=== PATIENT | male | born 1965 | race Caucasian/White ===

== ENCOUNTER 2016-11-17 17:30 | Emergency (ER) | payer MEDICAID ==
--- NOTE | 2016-11-17 17:38 | EDPHY ---
H & P Time Seen by Provider: 11/17/16 17:34 HPI/ROS: CHIEF COMPLAINT: Chronic hernia pain HISTORY OF PRESENT ILLNESS: The patient presents to the ED with complaints of chronic hernia pain. The patient was recently diagnosed with bronchitis and has been coughing. This is exacerbated his chronic hernia pain. The patient is scheduled to get surgery for bilateral inguinal hernias 2 weeks time. The patient denies additional acute complaints. He is not on antibiotics. The patient denies any inguinal mass or vomiting. He reports normal bowel movements. He denies additional complaints. REVIEW OF SYSTEMS: A comprehensive 10 point review of systems is otherwise negative aside from elements mentioned in the history of present illness. Source: Patient Exam Limitations: No limitations - Medical/Surgical History Hx Asthma: No Hx Chronic Respiratory Disease: No Hx Diabetes: No Hx Cardiac Disease: No Hx Renal Disease: No Hx Cirrhosis: No Hx Alcoholism: Yes Hx HIV/AIDS: No Hx Splenectomy or Spleen Trauma: No Other PMH: TB, bilateral hernias, reflux - Social History Smoking Status: Current every day smoker - Physical Exam Exam: General Appearance: Alert, disheveled, no acute distress, alcohol on breath Eyes: Pupils equal and round no pallor or injection ENT, Mouth: Mucous membranes moist Respiratory: There are no retractions, lungs are clear to auscultation Cardiovascular: Regular rate and rhythm Gastrointestinal: Tenderness to palpation noted in the left inguinal area, no irreducible hernia Neurological: A&O, normal motor function, normal sensory exam, normal cranial nerves Skin: Warm and dry, no rashes Musculoskeletal: Neck is supple nontender Extremities: symmetrical, full range of motion Constitutional: Initial Vital Signs Temperature (C) 36.6 C 11/17/16 17:30 Heart Rate 90 11/17/16 17:30 Respiratory Rate 20 11/17/16 17:30 Blood Pressure 108/69 11/17/16 17:30 O2 Sat (%) 94 11/17/16 17:30 O2 Delivery Mode Room Air Allergies/Adverse Reactions: Penicillins Allergy (Verified 11/17/16 17:45) Home Medications: Medication Instructions Recorded traMADol 11/17/16 Medical Decision Making ED Course/Re-evaluation: The patient presents to the ED with with a inguinal hernia pain. There is no evidence of an incarcerated or strangulated hernia. The patient is currently intoxicated it will not be given narcotic pain medications. The patient was offered Tylenol. The patient is scheduled to see a surgeon for repair of his hernias in 2 weeks time. The patient has been instructed to return to the ED for severe pain, vomiting, and irreducible hernia or other concerns. Departure - Departure Disposition: Home, Routine, Self-Care Clinical Impression: Inguinal hernia Condition: Good Instructions: Inguinal Hernia (ED) Additional Instructions: 1. Please follow up with the surgeon at as scheduled. 2. Tylenol as needed for pain. 3. Please return to the ED for a protrusion in your hernia that will not reduce , severe pain, vomiting or other concerns. Referrals: [facility] [Outside] - As per Instructions
[2016-11-17 18:02] VITALS: BP 110/64; PULSE 82; RESP 18; TEMP 98.2; O2SAT 95
[2016-11-17] MEDS ORDERED: ACETAMINOPHEN 325 MG TAB ONE (18:08)
[2016-11-17] MEDS ORDERED: ACETAMINOPHEN 325 MG TAB PO ONE (18:29)
== END 2016-11-17 18:30 | disposition home or self-care (01) ==
LOC: EDUNIT#
DX: K40.90 Unilateral inguinal hernia, without obstruction or gangrene, not specified as recurrent (principal); F17.200 Nicotine dependence, unspecified, uncomplicated

== ENCOUNTER 2017-03-21 20:12 | Emergency (ER) | payer MEDICAID ==
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
[2017-03-21] MEDS ORDERED: LIDOCAINE 5% 1 EA PATCH TD SCH (20:30)
[2017-03-21 20:48] VITALS: BP 128/76; PULSE 81; RESP 16; TEMP 97.7; O2SAT 95
[2017-03-21] MEDS ORDERED: PATCH REMOVAL 1 EA PATCH TD SCH (21:00)
== END 2017-03-21 20:50 | disposition home or self-care (01) ==
LOC: EDUNIT#
DX: M54.41 Lumbago with sciatica, right side (principal); F17.200 Nicotine dependence, unspecified, uncomplicated

== ENCOUNTER 2017-07-04 17:07 | Emergency (ER) | payer MEDICAID ==
[2017-07-04 17:19] VITALS: RESP 16; TEMP 97.9
[2017-07-04] MEDS ORDERED: TDAP ADULT 0.5 ML INJ (BOOSTRIX) IM ONE (17:55)
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
[2017-07-04 18:18] VITALS: BP 110/78; PULSE 72; O2SAT 96
== END 2017-07-04 18:18 | disposition home or self-care (01) ==
LOC: EDUNIT#
DX: S00.83XA Contusion of other part of head, initial encounter (principal); S00.81XA Abrasion of other part of head, initial encounter; F10.129 Alcohol abuse with intoxication, unspecified; F17.200 Nicotine dependence, unspecified, uncomplicated; Z23 Encounter for immunization; Y04.0XXA Assault by unarmed brawl or fight, initial encounter

== ENCOUNTER 2017-09-12 22:30 | Emergency (ER) | payer MEDICAID ==
[2017-09-12 22:35] VITALS: BP 117/64; PULSE 64; RESP 106; TEMP 97.9; O2SAT 93
[2017-09-12] MEDS ORDERED: IBUPROFEN 600 MG TAB PO ONE (22:46)
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
== END 2017-09-12 22:54 | disposition home or self-care (01) ==
LOC: EDUNIT#
DX: M54.5 Low back pain (principal); G89.29 Other chronic pain; F17.200 Nicotine dependence, unspecified, uncomplicated

== ENCOUNTER 2017-12-03 15:38 | Inpatient (IN) | payer MEDICAID ==
[~2017-12-03 15:38] MED LIST: PNEUMOCOCCAL 0.5ML VACCINE VIAL IM ONE
[2017-12-03] MEDS ORDERED: IPRATROPIUM/ALBUTEROL 3 ML DEYVIAL IH ONE (15:43)
[2017-12-03] MEDS ORDERED: methylPREDNISolone SOD SUCC 125 MG/2 ML VIAL IVP ONE (15:43)
[2017-12-03] MEDS ORDERED: NS 1,000 ML IV ONE (15:44)
--- NOTE | 2017-12-03 15:44 | EDPHY ---
H & P HPI/ROS: CHIEF COMPLAINT: Shortness of breath, lightheaded HISTORY OF PRESENT ILLNESS: The patient is a 52-year-old homeless man with a remote history of TB who called EMS because he felt short of breath and every time he stood up felt lightheaded. He states that 2 months ago he was diagnosed at the [facility] with COPD. He has been using inhalers to 3 times per day. Or last week or 2 he has had a worsening cough. He was seen at the clinic yesterday and prescribed Tessalon Perles. He states that he has had subjective fevers. No chest pain. No abdominal pain. When paramedics arrived they found that he was wheezing and saturating 89% on room air. They gave him a DuoNeb and his sats improved to 97% on room air. He denies any cardiac history. REVIEW OF SYSTEMS: Constitutional: denies: chills, fever, recent illness, recent injury EENTM: denies: blurred vision, double vision, nose congestion Respiratory: See HPI Cardiac: denies: chest pain, irregular heart rate, lightheadedness, palpitations Gastrointestinal/Abdominal: denies: abdominal pain, diarrhea, nausea, vomiting, blood streaked stools Genitourinary: denies: dysuria, frequency, hematuria, pain Musculoskeletal: denies: joint pain, muscle pain Skin: denies: lesions, rash, jaundice, bruising Neurological: denies: headache, numbness, paresthesia, tingling, dizziness, weakness Hematologic/Lymphatic: denies: blood clots, easy bleeding, easy bruising Immunologic/allergic: denies: HIV/AIDS, transplant EXAM: GENERAL: Well-appearing, well-nourished and in no acute distress. HEAD: Atraumatic, normocephalic. EYES: Pupils equal round and reactive to light, extraocular movements intact, sclera anicteric, conjunctiva are normal. ENT: TMs normal, nares patent, oropharynx clear without exudates. Moist mucous membranes. NECK: Normal range of motion, supple without lymphadenopathy or JVD. LUNGS: Bilateral rhonchi HEART: Regular rate and rhythm without murmurs, rubs or gallops. ABDOMEN: Soft, nontender, normoactive bowel sounds. No guarding, no rebound. No masses appreciated. BACK: No CVA tenderness, no spinal tenderness, step-offs or deformities EXTREMITIES: Normal range of motion, no pitting or edema. No clubbing or cyanosis. NEUROLOGICAL: Cranial nerves II through XII grossly intact. Normal speech, normal gait. 5/5 strength, normal movement in all extremities, normal sensation PSYCH: Normal mood, normal affect. SKIN: Warm, dry, normal turgor, no visible rashes or lesions. Source: Patient, EMS, Old records Exam Limitations: No limitations - Medical/Surgical History Hx Asthma: No Hx Chronic Respiratory Disease: No Hx Diabetes: No Hx Cardiac Disease: No Hx Renal Disease: No Hx Cirrhosis: No Hx Alcoholism: Yes Hx HIV/AIDS: No Hx Splenectomy or Spleen Trauma: No Other PMH: TB, bilateral hernias, reflux - Family History Significant Family History: No pertinent family hx - Social History Smoking Status: Current every day smoker Alcohol Use: Heavy Drug Use: Marijuana Constitutional: Initial Vital Signs Temperature (C) 37 C 12/03/17 15:40 Heart Rate 96 12/03/17 15:40 Respiratory Rate 20 12/03/17 15:40 Blood Pressure 144/90 H 12/03/17 15:40 O2 Sat (%) 93 12/03/17 15:40 O2 Delivery Mode Nasal Cannula O2 (L/minute) 2 Allergies/Adverse Reactions: Penicillins Allergy (Verified 09/12/17 22:33) Home Medications: Medication Instructions Recorded Albuterol [Proventil Inhaler HFA 1 - 2 puffs IH Q4H PRN MDD SOB 12/03/17 (*)] Benzonatate [Tessalon Pearles (RX)] 100 mg PO TID 12/03/17 Ipratropium/Albuterol [Combivent 1 puffs IH TID 12/03/17 Respimat Inhal [place](*)] Meloxicam [Meloxicam] 7.5 mg PO BID PRN 12/03/17 traMADol [Ultram 50 mg (*)] 50 - 100 mg PO TID PRN 12/03/17 Medical Decision Making - Diagnostics EKG Interpretation: An EKG obtained and was read and documented in trace view. Please see trace view for full reading and report. Unchanged from previous, sinus rhythm Imaging Results: Imaging Impressions Chest X-Ray 12/03/17 15:43 Impression: Stable chest with no acute findings. Imaging: Discussed imaging studies w/ call center agent Radiologist ED Course/Re-evaluation: After 2 nebs the patient's sats still remain in the high 80s. He is homeless. He will require admission for further treatment. I will start him on antibiotics in addition to treatment for the COPD. 5:15 p.m. I discussed the case with Dr. Елена Alfaro who will admit to the medical service. Differential Diagnosis: Partial list of the Differential diagnosis considered include but were not limited to; COPD exacerbation, pneumonia, bronchitis and although unlikely based on the history and physical exam, I also considered acute coronary disease , PE, pneumothorax, aneurysm. - Data Points Laboratory Results: Laboratory Results 12/03/17 15:45 12/03/17 15:45 12/03/17 12/03/17 12/03/17 15:45 15:45 15:45 WBC RBC Hgb Hct MCV MCH MCHC RDW Plt Count MPV Neut % (Auto) Lymph % (Auto) [place] % (Auto) Eos % (Auto) Baso % (Auto) Nucleat RBC Rel Count Absolute Neuts (auto) Absolute Lymphs (auto) Absolute Monos (auto) Absolute Eos (auto) Absolute Basos (auto) Absolute Nucleated RBC Immature Gran % Immature Gran # PT 12.9 SEC SEC (12.0-15.0) INR 0.95 (0.83-1.16) APTT 32.0 SEC SEC (23.0-38.0) VBG Lactic Acid 1.5 mmol/L mmol/L (0.7-2.1) Sodium 135 mEq/L mEq/L (135-145) Potassium 4.4 mEq/L mEq/L (3.5-5.2) Chloride 101 mEq/L mEq/L (97-110) Carbon Dioxide 21 mEq/l L mEq/l (22-31) Anion Gap 13 mEq/L mEq/L (8-16) BUN 12 mg/dL mg/dL (7-23) Creatinine 0.7 mg/dL mg/dL (0.7-1.3) Estimated GFR > 60 Glucose 105 mg/dL H mg/dL (70-100) Calcium 9.2 mg/dL mg/dL (8.5-10.4) Total Bilirubin 0.3 mg/dL mg/dL (0.1-1.4) Troponin I < 0.012 ng/mL ng/mL (0.000-0.034) 12/03/17 15:45 WBC 10.98 10^3/uL H 10^3/uL (3.80-9.50) RBC 4.79 10^6/uL 10^6/uL (4.40-6.38) Hgb 15.0 g/dL g/dL (13.7-17.5) Hct 45.3 % % (40.0-51.0) MCV 94.6 fL fL (81.5-99.8) MCH 31.3 pg pg (27.9-34.1) MCHC 33.1 g/dL g/dL (32.4-36.7) RDW 12.4 % % (11.5-15.2) Plt Count 274 10^3/uL 10^3/uL (150-400) MPV 10.5 fL fL (8.7-11.7) Neut % (Auto) 81.9 % H % (39.3-74.2) Lymph % (Auto) 11.2 % L % (15.0-45.0) [place] % (Auto) 6.1 % % (4.5-13.0) Eos % (Auto) 0.1 % L % (0.6-7.6) Baso % (Auto) 0.3 % % (0.3-1.7) Nucleat RBC Rel Count 0.0 % % (0.0-0.2) Absolute Neuts (auto) 9.00 10^3/uL H 10^3/uL (1.70-6.50) Absolute Lymphs (auto) 1.23 10^3/uL 10^3/uL (1.00-3.00) Absolute Monos (auto) 0.67 10^3/uL 10^3/uL (0.30-0.80) Absolute Eos (auto) 0.01 10^3/uL L 10^3/uL (0.03-0.40) Absolute Basos (auto) 0.03 10^3/uL 10^3/uL (0.02-0.10) Absolute Nucleated RBC 0.00 10^3/uL 10^3/uL (0-0.01) Immature Gran % 0.4 % % (0.0-1.1) Immature Gran # 0.04 10^3/uL 10^3/uL (0.00-0.10) PT INR APTT VBG Lactic Acid Sodium Potassium Chloride Carbon Dioxide Anion Gap BUN Creatinine Estimated GFR Glucose Calcium Total Bilirubin Troponin I Microbiology Results: MICROBIOLOGY 12/03/17 16:15 Nasal, Sinus - Anaerobic Tube/Swab Respiratory Panel (PCR) - Final Human Metapneumovirus Medications Given: Discontinued Medications Albuterol (Proventil Neb) 3 ml IH EDNOW ONE Stop: 12/03/17 16:54 Last Admin: 12/03/17 16:55 Dose: 3 ml Albuterol/Ipratropium (Duoneb) 3 ml IH EDNOW ONE Stop: 12/03/17 15:44 Last Admin: 12/03/17 16:05 Dose: 3 ml Azithromycin (Zithromax) 500 mg PO EDNOW ONE PRN Reason: Protocol Stop: 12/03/17 17:08 Last Admin: 12/03/17 17:19 Dose: 500 mg Sodium Chloride (Ns) 1,000 mls @ 0 mls/hr IV ONCE ONE; Wide Open PRN Reason: Protocol Stop: 12/03/17 15:45 Last Admin: 12/03/17 16:05 Dose: 1,000 mls Methylprednisolone Sodium Succinate (Solu-Medrol) 125 mg IVP EDNOW ONE Stop: 12/03/17 15:44 Last Admin: 12/03/17 16:05 Dose: 125 mg Departure - Departure Disposition: [facility] Inpatient Acute Clinical Impression: Chronic obstructive pulmonary disease with acute exacerbation Condition: Fair
[2017-12-03 15:57] LABS: PLATELET COUNT 274 10^3/uL (150-400)
[2017-12-03 16:06] LABS: INR 0.95 (0.83-1.16); PROTIME(PATIENT) 12.9 SEC (12.0-15.0)
[2017-12-03] MEDS ORDERED: ALBUTEROL 3 ML DEYVIAL IH ONE (16:53)
[2017-12-03] MEDS ORDERED: AZITHROMYCIN 250 MG TAB PO ONE (17:07)
[2017-12-03] MEDS ORDERED: NON-FORMULARY NEW DRUG (Meloxicam [Meloxicam] 7.5 MG) PO PRN (21:40)
[2017-12-03] MEDS ORDERED: IBUPROFEN 600 MG TAB PO PRN (21:45)
[2017-12-03] MEDS ORDERED: ONDANSETRON 4 MG/2 ML VIAL IVP PRN (21:45)
[2017-12-03] MEDS ORDERED: guaiFENesin 600 MG TAB.ER PO ONE ×2 (22:13→22:14)
[2017-12-03] MEDS: guaiFENesin 600 MG TAB.ER PO SCH (22:17)
[2017-12-03] MEDS: BENZONATATE 100 MG CAP PO SCH (22:17)
[2017-12-03] MEDS: traMADol 50 MG TAB PO PRN (22:17)
--- NOTE | 2017-12-03 22:17 | GHP ---
[f rep st] HISTORY AND PHYSICAL DATE OF ADMISSION: 12/03/2017 CHIEF COMPLAINT: Shortness of breath. HISTORY: The patient is a 52-year-old male with COPD and ongoing heavy tobacco abuse, who presents w ith shortness of breath and cough. He has was hospitalized in [place] for COPD exacerbation. He "can not remember when," but he has never gotten better since that hospitalization. It has gotten worse i n the last 1-1/2 weeks. He complains of [id number] phlegm. He has fever off and on. Shortn ess of breath got so bad today he called 911. PAST MEDICAL HISTORY: 1. COPD. 2. Remote tuberculosis, which he was exposed to while staying in a homeless assisted in [place] in . 3. Chronic low back pain. PAST SURGICAL HISTORY: Hernia. MEDICATIONS: Please see computer record for full detailed list. ALLERGIES: Penicillin. SOCIAL HISTORY: He smokes 2 packs per day. He quit alcohol 2 months ago. He is homeless. REVIEW OF SYSTEMS: Complete review of systems obtained. Review of systems negative regarding consti tutional, HEENT, GI, pulmonary, cardiovascular, , hematology, skin, muscular, endocrine, psych, exc ept for positives as in HPI. FAMILY HISTORY: Reviewed, noncontributory to presenting complaint. PHYSICAL EXAMINATION: GENERAL: Well-developed, well-nourished male, in no distress. VITAL SIGNS: Temp is 37.2, pulse 105, blood pressure 130/84, saturating 88% on room air. EYES: Normal conjunctiv ae. Pupils react to light. ENT: Normal ears and nose. Hearing intact. Normal teeth. Oropharynx moist. NECK: Trachea midline. No thyromegaly. CHEST: Normal respiratory effort. LUNGS: Scatter ed wheezes and rhonchi. CARDIOVASCULAR: Regular rhythm. No murmur. No lower extremity edema. ABD OMEN: Soft, nontender. No hepatosplenomegaly. SKIN: Warm, dry, intact. No rash. MUSCULOSKELETAL : No cyanosis or clubbing. Strength 5/5, upper and lower extremities. NEUROLOGIC: Cranial nerves intact. Normal sensation to light touch. PSYCH: Alert and oriented x3. Normal affect. Normal sarah gment. Normal memory. LABORATORY DATA: White count 10.9, hematocrit 45.3, platelets 274. Sodium 135, potassium 4.4, chlor deny 101, bicarb 21, BUN 12, creatinine 0.7, glucose 105, troponins negative. Lactate is 1.5, INR 0.9 5. Chest x-ray is negative. Respiratory PCR is positive for metapneumovirus. This case was discussed with Dr. Monty Andrew, emergency room physician, regarding emergency room co urse. ASSESSMENT/PLAN: 1. Chronic obstructive pulmonary disease exacerbation. Will start him on prednisone and scheduled nebulizers. 2. Viral upper respiratory tract infection. He is positive for human metapneumovirus. Will hold of f on any further antibiotics. 3. Remote tuberculosis, status post full treatment. I doubt this represents recurrence. 4. Tobacco dependence. Will administer a nicotine patch. CODE STATUS: Full. ADMISSION STATUS: Will admit to observation. Reevaluate tomorrow regarding ongoing hospitalization. DVT PROPHYLAXIS: He is moderate risk. Will place on subcu Lovenox. /[id number]/MODL
[2017-12-03] MEDS: IPRATROPIUM/ALBUTEROL 3 ML DEYVIAL IH SCH (22:35)
[2017-12-04] MEDS ORDERED: PNEUMOCOCCAL 0.5ML VACCINE VIAL ONE (00:30)
[2017-12-04] MEDS: ACETAMINOPHEN 325 MG TAB PO PRN ×2 (00:39→15:37)
[2017-12-04] MEDS: IPRATROPIUM/ALBUTEROL 3 ML DEYVIAL IH SCH ×3 (05:44→16:08)
[2017-12-04] MEDS: predniSONE 20 MG TAB PO SCH (08:23)
[2017-12-04] MEDS: BENZONATATE 100 MG CAP PO SCH ×3 (08:23→21:15)
[2017-12-04] MEDS: traMADol 50 MG TAB PO PRN ×2 (08:23→21:15)
[2017-12-04] MEDS: guaiFENesin 600 MG TAB.ER PO SCH ×2 (08:24→21:15)
[2017-12-04] MEDS: NICOTINE 21 MG/24 HR PATCH TD SCH (08:24)
[2017-12-04] MEDS: ENOXAPARIN 40 MG/0.4 ML SYR SC SCH (08:26)
--- NOTE | 2017-12-04 10:00 | HOSPPROG ---
Hospitalist Progress Note Assessment/Plan: Patient is a 52-year-old male with COPD and ongoing tobacco use. He presented the emergency with shortness of breath. He was recently hospitalized in [place] for COPD exacerbation. Today is my 1st encounter with the patient. Chart reviewed. * viral upper respiratory tract infection -patient is positive for human metapneumovirus -feeling better with steroids -droplet precautions *acute hypoxemic respiratory failure -multifactorial, COPD w the above -on 3 liters of oxygen *COPD exacerbation -cont duonebs and steroids *underweight w a BMI of 20 *Nicotine dependence -nicotine patch, cessation recommended *Homelessness -CM to arrange for bed at group home when dc *Plan: patient is still quite hypoxic, requiring oxygen and needs another night to treat with nebulizers. Subjective: Prasad is feeling better today overall. Objective: Vital Signs Temp Pulse Resp BP Pulse Ox 36.7 C 79 16 123/63 H 92 12/04/17 08:00 12/04/17 08:00 12/04/17 08:00 12/04/17 08:00 12/04/17 08:00 12/03/17 12/04/17 12/05/17 05:59 05:59 05:59 Intake Total 1000 Balance 1000 PT 12.9 SEC (12.0-15.0) 12/03/17 15:45 INR 0.95 (0.83-1.16) 12/03/17 15:45 - Physical Exam Constitutional: unkempt, other (thin) Eyes: PERRL Ears, Nose, Mouth, Throat: hearing normal Cardiovascular: regular rate and rhythym Respiratory: no respiratory distress, reduced air movement (bibasilar, poor breath sounds throughout, very diminished) Skin: warm Musculoskeletal: full muscle strength Neurologic: AAOx3 Psychiatric: interacting appropriately ICD10 Worksheet Patient Problems: Problems Problem Status Onset Chronic obstructive pulmonary disease with acute exacerbation Acute Back pain Acute
--- NOTE | 2017-12-04 12:17 | ASMTCMCOM ---
CM Note CM Note Notes: Spoke with patient, he states he is in the transitional program at the [facility] and will return there when medically stable. CM to help with bus pass. DC Plan: [facility] Date Signed: 12/04/2017 12:16 PM Electronically Signed By:Venus Mccormick RN
--- NOTE | 2017-12-04 12:25 | CPEKG ---
Heart Rate: 82 RR Interval: 732 P-R Interval: 192 QRSD Interval: 94 QT Interval: 376 QTC Interval: 439 P [place]: 77 QRS [place]: 59 T Wave [place]: 80 EKG Severity - ABNORMAL ECG - EKG Impression: SINUS RHYTHM EKG Impression: NONSPECIFIC T ABNORMALITIES, ANT-LAT LEADS Electronically Signed By: Monty Andrew 04-Dec-2017 20:55:15
--- NOTE | 2017-12-04 15:33 | PDMN ---
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
[2017-12-05] MEDS: IPRATROPIUM/ALBUTEROL 3 ML DEYVIAL IH SCH ×3 (00:09→11:53)
[2017-12-05] MEDS: BENZONATATE 100 MG CAP PO SCH (08:05)
[2017-12-05] MEDS: predniSONE 20 MG TAB PO SCH (08:05)
[2017-12-05] MEDS: guaiFENesin 600 MG TAB.ER PO SCH (08:06)
[2017-12-05] MEDS: NICOTINE 21 MG/24 HR PATCH TD SCH (08:06)
[2017-12-05] MEDS: ENOXAPARIN 40 MG/0.4 ML SYR SC SCH (08:06)
[2017-12-05] MEDS: traMADol 50 MG TAB PO PRN (08:07)
--- NOTE | 2017-12-05 10:23 | HOSPPROG ---
Hospitalist Progress Note Assessment/Plan: Patient is a 52-year-old male with COPD and ongoing tobacco use. He presented the emergency with shortness of breath. He was recently hospitalized in [place] for COPD exacerbation. * viral upper respiratory tract infection -patient is positive for human metapneumovirus -feeling better with steroids -droplet precautions *acute hypoxemic respiratory failure -multifactorial, COPD w the above -on room air this morning *COPD exacerbation -cont duonebs and steroids *underweight w a BMI of 20 *Nicotine dependence -nicotine patch, cessation recommended *Homelessness -CM to arrange for bed / PCP has requested 2 nights at the [facility] *Plan: dc Subjective: Prasad says he is feeling better but concerned about being in the cold. Objective: Vital Signs Temp Pulse Resp BP Pulse Ox 36.6 C 93 18 125/87 H 88 L 12/05/17 07:32 12/05/17 07:32 12/05/17 07:32 12/05/17 07:32 12/05/17 07:32 Microbiology 12/04/17 10:30 - Final Sputum, Expectorated 12/04/17 12/05/17 12/06/17 05:59 05:59 05:59 Intake Total 1150 Balance 1150 PT 12.9 SEC (12.0-15.0) 12/03/17 15:45 INR 0.95 (0.83-1.16) 12/03/17 15:45 - Physical Exam Constitutional: no apparent distress, other (thin) Eyes: PERRL Ears, Nose, Mouth, Throat: hearing normal Cardiovascular: regular rate and rhythym Respiratory: no respiratory distress, reduced air movement, other (loose cough) Skin: warm Musculoskeletal: full muscle strength Neurologic: AAOx3 Psychiatric: interacting appropriately, not anxious ICD10 Worksheet Patient Problems: Problems Problem Status Onset Chronic obstructive pulmonary disease with acute exacerbation Acute Back pain Acute
--- NOTE | 2017-12-05 10:49 | GDS ---
[f rep st] DISCHARGE SUMMARY DISCHARGE DIAGNOSIS: 1. Upper respiratory viral infection, positive for human metapneumovirus. 2. Acute hypoxemic respiratory failure. 3. Chronic obstructive pulmonary disease exacerbation. 4. Underweight with a body mass index of 20. 5. Nicotine dependence. 6. Homelessness. HISTORY: Briefly, the patient is a 52-year-old male with COPD and ongoing tobacco use. He presented the emergency room with shortness of breath. He was recently hospitalized in [place] for COPD. HOSPITAL COURSE: 1. Viral upper respiratory tract infection. He is positive for the human metapneumovirus. He is st able. 2. Acute hypoxemic respiratory failure. This is due to the viral infection as well as COPD. He is on room air this morning and oxygen levels are stable. 3. Chronic obstructive pulmonary disease exacerbation. He is very motivated to quit smoking. He wo uld like his stay on the nicotine patch. 4. Underweight. He has a BMI of 20. 5. Nicotine dependence. Motivated to quit smoking. 6. Homelessness. He will be staying at the [facility] for the next 2 days due to the cold weather. DISCHARGE CONDITION: Stable. Blood pressure is 125/87, heart rate 93, respiratory rate is 18, O2 sa turations on room air are 91%, temperature is 36.6 Celsius. MEDICATIONS AT DISCHARGE: Please see the EMR. DISCHARGE INSTRUCTIONS: 1. Recommend he quit smoking. 2. Follow up with his PCP, has an appointment tomorrow. 3. Stay on the prednisone for 4 more days. 4. Stay inside while the weather is so cold. /[id number]/MODL
[2017-12-05 11:35] VITALS: BP 131/80; TEMP 99.9
[2017-12-05 12:07] VITALS: PULSE 105; RESP 16; O2SAT 92
[2017-12-05] MEDS: ACETAMINOPHEN 325 MG TAB PO PRN (12:15)
--- NOTE | 2017-12-05 16:21 | ASMTLACE ---
LACE Length of stay for Answers: 2 days current admission Acuity / Level of Answers: Yes Care: Did the patient have an inpatient admission? Comorbidities - select Answers: Chronic pulmonary disease all that apply Social determinants Answers: Homelessness (street, fpc) Lack of community resources and/or lack of social support (no pcp, lives alone, transportation, sudhaakr d) Score: 14 Date Signed: 12/05/2017 04:20 PM Electronically Signed By:Jasmin Zamora LCSW
== END 2017-12-05 15:46 | disposition home or self-care (01) | DRG 152 ==
LOC: EDUNIT# → F3E 18:21 → OBSVTOIN 12-04 10:29
PROVIDERS: ADMIT Internal Medicine; ATTEND Internal Medicine
DX: J06.9 Acute upper respiratory infection, unspecified (principal); J96.01 Acute respiratory failure with hypoxia; J44.1 Chronic obstructive pulmonary disease with (acute) exacerbation; B97.81 Human metapneumovirus as the cause of diseases classified elsewhere; R63.6 Underweight; Z68.20 Body mass index [BMI] 20.0-20.9, adult; F17.200 Nicotine dependence, unspecified, uncomplicated; Z59.0 Homelessness; Z23 Encounter for immunization; Z86.11 Personal history of tuberculosis
CPT/HCPCS: 96374; 97161-GP; 97165-GO; G0009; G0378; J1650; J2930; J7512; J7613

== ENCOUNTER 2017-12-10 16:06 | Inpatient (IN) | payer MEDICAID ==
--- NOTE | 2017-12-10 16:09 | EDPHY ---
H & P Time Seen by Provider: 12/10/17 16:08 HPI/ROS: HPI: This is a 52-year-old male who presents with Chief Complaint: Cough and congestion Location: Chest Quality: Congestion Duration: 1-2 days Signs and Symptoms: No fever, no shortness of breath at rest, + shortness of breath on exertion, + a productive cough, no chest pain, no palpitations, no lower extremity edema, no wheezing, no orthopnea, no paroxysmal nocturnal dyspnea, no injury/trauma, no hemoptysis Timing: Acute on chronic Severity: Moderate Context: Patient has a history of left pneumothorax, COPD not on O2 supplemental, tuberculosis, homelessness, presents with complaints of increased cough and congestion over his baseline the last 1-2 days. Patient was recently hospitalized 12/03-12/04/2017 for acute respiratory failure secondary to COPD and viral pneumonia. Patient reports that he took his last prednisone pill 2 days ago. ED reports since that time he feels that his left lung is more congested that is right lung. He is using Combivent inhaler without any improvement. Denies tobacco use. Patient denies any nasal congestion/ rhinorrhea/lower extremity edema/chest pain. Modifying Factors: See above Comment: ROS: see HPI Constitutional: No fever, no chills, no weight loss Eyes: No blurred vision Respiratory: No shortness of breath, no cough Cardiovascular: No chest pain, no palpitations, no lower extremity edema Gastrointestinal: No nausea, no vomiting, no diarrhea Genitourinary: No dysuria Extremities: No myalgias Neurologic: No weakness, no numbness Skin: No rashes Hematologic: No bruising, no bleeding MEDICAL/SURGICAL/SOCIAL HISTORY: Medical/surgical history: TB, bilateral hernias, reflux Social history: Homeless CONSTITUTIONAL: Chronically ill-appearing, nontoxic appearing, elderly male, awake and alert, no obvious distress HEENT: Atraumatic and normocephalic, PERRL, EOMI. Tympanic membranes clear. Oropharynx clear, no exudate and moist pink mucosa. Airway patent. No lymphadenopathy. No meningismus. Cardiovascular: Normal S1/S2, regular rate, regular rhythm, without murmur rub or gallop. PULMONARY/CHEST: Symmetrical and nontender. Coarseness bilaterally. Good air movement. No accessory muscle usage. ABDOMEN: Soft, nondistended, nontender, no rebound, no guarding, no peritoneal signs, no masses or organomegaly. No CVAT. EXTREMITIES: 2/2 pulses, strength 5/5, no deformities, no clubbing, no cyanosis or edema. NEUROLOGICAL: no focal neuro deficits. GCS 15. SKIN: Warm and dry, no erythema. no rash. Good capillary refill. Source: Patient Exam Limitations: No limitations - Medical/Surgical History Hx Asthma: No Hx Chronic Respiratory Disease: No Hx Diabetes: No Hx Cardiac Disease: No Hx Renal Disease: No Hx Cirrhosis: No Hx Alcoholism: Yes Hx HIV/AIDS: No Hx Splenectomy or Spleen Trauma: No Other PMH: TB, bilateral hernias, reflux - Social History Smoking Status: Current every day smoker Constitutional: Initial Vital Signs Temperature (C) 37.2 C 12/10/17 16:13 Heart Rate 93 12/10/17 16:13 Respiratory Rate 20 12/10/17 16:13 Blood Pressure 130/67 H 12/10/17 16:13 O2 Sat (%) 90 L 12/10/17 16:13 O2 Delivery Mode Nasal Cannula O2 (L/minute) 4 Allergies/Adverse Reactions: Penicillins Allergy (Verified 12/10/17 16:11) Home Medications: Medication Instructions Recorded Albuterol [Proventil Inhaler HFA 1 - 2 puffs IH Q4H PRN MDD SOB 12/03/17 (*)] Benzonatate [Tessalon Pearles] 100 mg PO TID 12/03/17 Ipratropium/Albuterol [Combivent 1 puffs IH TID 12/03/17 Respimat Inhal Latty(*)] Meloxicam 7.5 mg PO BID PRN 12/03/17 traMADol [Ultram 50 mg (*)] 50 - 100 mg PO TID PRN 12/03/17 guaiFENesin [Mucinex 600 MG (*)] 1,200 mg PO BID tab.er 12/05/17 predniSONE 40 mg PO DAILY #8 tablet 12/05/17 Medical Decision Making - Diagnostics Imaging Results: Imaging Impressions Chest X-Ray 12/10/17 16:19 Impression: No evidence for acute cardiopulmonary abnormality. Stable chronic findings as above. ED Course/Re-evaluation: Labs, EKG, chest x-ray, IV medications comment nebulizer therapy ordered O2 sats 90% on room air upon arrival; unsure of baseline. No signs of respiratory distress. Given IV Solu-Medrol 125 and DuoNeb Chest x-ray my read shows stability. No acute effusion, opacity, pneumothorax. Labs reviewed: 16 K white count noted. Likely reactive due to steroid induced. On 12/03/2017 chart review shows WBC 10.9K O2 sats 82% on room air and comes up to 90% on 2 liters nasal cannula Reviewed records from prior hospitalization and no pulmonary embolism evaluation performed. CTA chest ordered 1900: Called by radiologist who advised no pulmonary embolism but there is patchy pneumonia in the right lower lobe and right upper lobe. Blood cultures and IV Cefepime given (concern for hospital-acquired due to recent admission) ED decision to consult for admission as pneumonia and hypoxia. Spoke with hospitalist, Dr. Dotson, who kindly accepts care of the patient. This patient was seen under the supervision of my primary supervising physician. I evaluated care for this patient independently. Discussed this patient with Dr. Leal who did not see the patient. Differential Diagnosis: Shortness of breath including but not limited to pulmonary infectious process, COPD, asthma, pulmonary embolus and congestive heart failure. - Data Points Laboratory Results: Laboratory Results 12/10/17 17:00 12/10/17 17:00 12/10/17 12/10/17 17:00 17:00 WBC 16.99 10^3/uL H 10^3/uL (3.80-9.50) RBC 4.68 10^6/uL 10^6/uL (4.40-6.38) Hgb 14.5 g/dL g/dL (13.7-17.5) Hct 42.9 % % (40.0-51.0) MCV 91.7 fL fL (81.5-99.8) MCH 31.0 pg pg (27.9-34.1) MCHC 33.8 g/dL g/dL (32.4-36.7) RDW 12.4 % % (11.5-15.2) Plt Count 360 10^3/uL 10^3/uL (150-400) MPV 9.8 fL fL (8.7-11.7) Neut % (Auto) 75.1 % H % (39.3-74.2) Lymph % (Auto) 15.8 % % (15.0-45.0) Laporte % (Auto) 7.3 % % (4.5-13.0) Eos % (Auto) 0.5 % L % (0.6-7.6) Baso % (Auto) 0.2 % L % (0.3-1.7) Nucleat RBC Rel Count 0.0 % % (0.0-0.2) Absolute Neuts (auto) 12.74 10^3/uL H 10^3/uL (1.70-6.50) Absolute Lymphs (auto) 2.69 10^3/uL 10^3/uL (1.00-3.00) Absolute Monos (auto) 1.24 10^3/uL H 10^3/uL (0.30-0.80) Absolute Eos (auto) 0.09 10^3/uL 10^3/uL (0.03-0.40) Absolute Basos (auto) 0.04 10^3/uL 10^3/uL (0.02-0.10) Absolute Nucleated RBC 0.00 10^3/uL 10^3/uL (0-0.01) Immature Gran % 1.1 % % (0.0-1.1) Immature Gran # 0.19 10^3/uL H 10^3/uL (0.00-0.10) Sodium 136 mEq/L mEq/L (135-145) Potassium 3.8 mEq/L mEq/L (3.5-5.2) Chloride 103 mEq/L mEq/L (97-110) Carbon Dioxide 21 mEq/l L mEq/l (22-31) Anion Gap 12 mEq/L mEq/L (8-16) BUN 19 mg/dL mg/dL (7-23) Creatinine 0.6 mg/dL L mg/dL (0.7-1.3) Estimated GFR > 60 Glucose 131 mg/dL H mg/dL (70-100) Calcium 9.0 mg/dL mg/dL (8.5-10.4) Troponin I < 0.012 ng/mL ng/mL (0.000-0.034) NT-Pro-B Natriuret Pep 128 pg/mL H pg/mL (0-125) Medications Given: Discontinued Medications Albuterol/Ipratropium (Duoneb) 3 ml IH EDNOW ONE Stop: 12/10/17 16:19 Last Admin: 12/10/17 17:09 Dose: 3 ml Methylprednisolone Sodium Succinate (Solu-Medrol) 125 mg IVP EDNOW ONE Stop: 12/10/17 16:19 Last Admin: 12/10/17 17:09 Dose: 125 mg Departure - Departure Disposition: [facility] [place] Inpatient Acute Clinical Impression: Hypoxia, Hospital-acquired pneumonia Condition: Fair
[2017-12-10] MEDS ORDERED: IPRATROPIUM/ALBUTEROL 3 ML DEYVIAL IH ONE (16:18)
[2017-12-10] MEDS ORDERED: methylPREDNISolone SOD SUCC 125 MG/2 ML VIAL IVP ONE (16:18)
--- NOTE | 2017-12-10 17:05 | CPEKG ---
Heart Rate: 85 RR Interval: 706 P-R Interval: 168 QRSD Interval: 92 QT Interval: 364 QTC Interval: 433 P [place]: 90 QRS [place]: 74 T Wave [place]: 85 EKG Severity - NORMAL ECG - EKG Impression: SINUS RHYTHM Electronically Signed By: Liana Leal 10-Dec-2017 23:04:03
[2017-12-10 17:08] LABS: PLATELET COUNT 360 10^3/uL (150-400)
[2017-12-10] MEDS ORDERED: IOPAMIDOL (ISOVUE 370) 100 ML BTL IV ONE (18:16)
[2017-12-10] MEDS ORDERED: CEFEPIME HCL 2 GM in STERILE WATER INJ 12.5 ML IV ONE (19:04)
--- NOTE | 2017-12-10 21:46 | GHP ---
[f rep st] HISTORY AND PHYSICAL DATE OF ADMISSION: 12/10/2017 CHIEF COMPLAINT: Shortness of breath and cough. HISTORY OF PRESENT ILLNESS: The patient is a 52-year-old gentleman who has a history of COPD and is currently homeless, living [facility] a [facility] who was also recently discharged from [facility]. He was diagnosed with human metapneumovirus. He did have a sputum culture from his pr ior admission too, which eventually grew out streptococcal pneumoniae. He presented to the [facility] on 12/10/2017 with subjective shortness of breath. He was hypoxic when he first ca me in, but was saturating 92% on 2-3 L nasal cannula. He does not normally use oxygen outside of the hospital. He had a CT angiography of his chest, which did not show any pulmonary embolism, but did show probable pneumonia in the right upper lobe. He was given a dose of cefepime, which he tolerated well. He does cite a penicillin allergy. PAST MEDICAL HISTORY: 1. COPD. 2. History of tuberculosis, status post antibiotic treatment. PAST SURGICAL HISTORY: Hernia repair as an . MEDICATIONS: His medication list is taken from his ambulatory orders tab. 1. Albuterol inhaler. 2. Tessalon Perles 100 mg 3 times a day. 3. Mucinex 600 mg twice a day. 4. Meloxicam 7.5 mg twice a day. 5. Nicoderm 21 mg per 24-hour patch. 6. Tramadol 50-100 mg as needed. ALLERGIES: Penicillin, which he states will kill him. FAMILY HISTORY: Mother and father are both . They had history of cancer and myocardial infa rction, respectively. SOCIAL HISTORY: The patient is from his . He has 1 daughter. They live in [place]. He is currently homeless, living at the [facility]. He is an active smoker currently, but stopped drinking alcohol approximately 2 months ago. His power of erisa attorney would be his sister. CODE STATUS: Reviewed. He is a full code status. REVIEW OF SYSTEMS: CONSTITUTIONAL: No complaints of any fevers or chills. ENT: Positive for recent upper respiratory illness and being diagnosed with human metapneumovirus. CARDIOVASCULAR: No compl aints of chest pains, palpitations, or syncopal episodes. RESPIRATORY: Positive for subjective shor tness of breath and cough, which he states has not been very productive. GI: No nausea, vomiting, d iarrhea, or constipation. No focal abdominal pain. : No report of any difficulty with urination. NEUROLOGIC: No complaints of any headaches or focal weakness. HEMATOLOGIC: No history of any stephany p vein thrombosis or pulmonary embolism. PSYCHIATRIC: No history of anxiety or depression. ENDOCRI NE: No history of diabetes or thyroid abnormality. SKIN: No new skin rashes. MUSCULOSKELETAL: No focal joint pains. PHYSICAL EXAMINATION: VITAL SIGNS: Temperature 36.7, blood pressure 135/73, heart rate 69, respirat ions 19, saturating 94% 3 L nasal cannula. GENERAL: The patient appears comfortable. He is awake, alert, conversant. HEENT: Extraocular movements intact. Pupils equal. No scleral icterus is noted . Mucous membranes dry. NECK: Supple. No thyroid enlargement appreciated. CHEST: Normal respira tory effort. Mild crackles on right lung field, but no significant wheezing is appreciated, although he has received breathing treatments in the emergency department. HEART: Regular. No murmurs. AB DOMEN: Soft, nontender, nondistended. : No Mark catheter in place. EXTREMITIES: No significan t pitting edema. NEUROLOGIC: Cranial nerves 2-12 appear intact and strength 5/5 in extremities. LABORATORY DATA: White blood cell count of 16, hemoglobin 14, platelets 360. Sodium 136, potassium 3.8, chloride 103, bicarbonate 21, BUN 19, creatinine 0.6, glucose of 131. Lactic acid 1.3. Troponi n less than 0.012. BNP is 128. IMAGIN. Chest x-ray: No acute cardiopulmonary disease. 2. CT angiography of the chest: No thrombopulmonary or embolic disease. Evidence of prior granulom atous disease with numerous calcified granuloma bilaterally. Apical pleural scarring bilaterally and parenchymal scarring at lung apices bilaterally with calcification. Probable pneumonia in right upp er lobe. There is also nodularity with a tree-n-bud appearance in the right lobe inferiorly suggesti ng it could be a component of underlying Mycobacterium avium intracellulare. ASSESSMENT AND PLAN: 1. Acute hypoxic respiratory failure, presumably due to infectious process on top of chronic obstruc tive pulmonary disease. The patient's lungs do sound better on my evaluation after receiving Solu-Me drol nebulizers in the emergency department. We will continue with scheduled Solu-Medrol, as well as scheduled nebulizers. 2. Pneumonia. The patient has a right upper lobe pneumonia seen on chest CT imaging. Sputum cultur e from 12/04/2017 showed Streptococcal pneumoniae, which could be the source of the infiltrate. Jonelle cee, considering he is homeless and living in a homeless penit[facility], I think with an upper lobe pneumoni a it would be reasonable to assess for the possibility of mycobacterium tuberculosis as well. Will o rder an acid-fast bacilli smears and put him in respiratory isolation for now. He did have a micro b acterial smear done in the summer of 2015. This was negative. Otherwise, we will continue treatment for potential healthcare-associated pneumonia with cefepime and Levaquin and also order methicillin- resistant Staphylococcus aureus screen. 3. Leukocytosis. Trend with treatment, although patient will be on steroids. 4. Tobacco use. Nicotine patch will be used. 5. Deep venous thrombosis prophylaxis with Lovenox. DISPOSITION: I anticipate he will be here for over 2 midnights, probably 3 to 5 days, so I will admi t him under inpatient status. /[id number]/MODL
[2017-12-10] MEDS: CEFEPIME HCL 2 GM in STERILE WATER INJ 12.5 ML IV SCH (21:57)
[2017-12-10] MEDS: methylPREDNISolone SOD SUCC 40 MG/ML VIAL IVP SCH (23:27)
[2017-12-11] MEDS: IPRATROPIUM/ALBUTEROL 3 ML DEYVIAL IH SCH ×4 (05:33→20:39)
[2017-12-11 05:52] LABS: PLATELET COUNT 386 10^3/uL (150-400)
[2017-12-11] MEDS: CEFEPIME HCL 2 GM in STERILE WATER INJ 12.5 ML IV SCH ×2 (06:00→13:18)
[2017-12-11] MEDS: methylPREDNISolone SOD SUCC 40 MG/ML VIAL IVP SCH ×3 (06:01→17:12)
[2017-12-11] MEDS ORDERED: NICOTINE 21 MG/24 HR PATCH TD PRN (08:05)
[2017-12-11] MEDS ORDERED: Meloxicam [Meloxicam] 7.5 MG PO PRN (08:05)
[2017-12-11] MEDS ORDERED: ALBUTEROL 60 PUFFS/8 GM MDI IH PRN (08:05)
[2017-12-11] MEDS: BENZONATATE 100 MG CAP PO SCH ×3 (08:50→21:36)
[2017-12-11] MEDS: guaiFENesin 600 MG TAB.ER PO SCH ×2 (08:51→21:36)
[2017-12-11] MEDS: traMADol 50 MG TAB PO PRN ×2 (08:51→18:14)
[2017-12-11] MEDS: ENOXAPARIN 40 MG/0.4 ML SYR SC SCH (08:51)
[2017-12-11] MEDS ORDERED: NICOTINE 21 MG/24 HR PATCH TD SCH (09:00)
[2017-12-11] MEDS ORDERED: IPRATROPIUM/ALBUTEROL 4GM MDI IH SCH (09:00)
--- NOTE | 2017-12-11 10:46 | PDMN ---
Medical Necessity Medical necessity: est los>2mn for acute hypoxic resp failure r/t PNA w/copd; admit for IV abx and steroids, r/o tb, and isolation precautions; comorbid COPD , hx tb, homeless residing at [facility], and recent hospital admission for COPD; per order and H&P
--- NOTE | 2017-12-11 15:04 | HOSPPROG ---
Hospitalist Progress Note Assessment/Plan: Patient is a 52-year-old gentleman who was recently discharged from [facility]. At that time he was diagnosed with a human metapneumovirus. He returned to the emergency room with shortness of breath and cough. Today is my 1st encounter with the patient. Chart reviewed. * acute hypoxemic respiratory failure -multifactorial, likely due to COPD and pneumonia -continue supportive treatment with inhalers and oxygen * pneumonia, right upper lobe -concern for healthcare pneumonia with cefepime and Levaquin, but sputum cx on recent admit showed strept pna, will treat solely w Levaquin -patient is also being checked for possible mycobacterium tuberculosis (#1 sputum is currently pending) -patient has a history of tuberculosis, concerning is he has night sweats and weight loss -will place in a negative pressure room *COPD exacerbation -steroids and neb treatments * leukocytosis -could be due to the above the was also treated with steroids * nicotine dependence -cessation recommended on patch *homelessness *dvt prophylaxis: LMWH *Plan: follow afb's, cont current treatment Subjective: Prasad said he had been feeling well until recently when he felt worsening shortness of breath. Objective: Vital Signs Temp Pulse Resp BP Pulse Ox 37 C 90 16 131/78 H 93 12/11/17 11:11 12/11/17 11:11 12/11/17 11:11 12/11/17 11:11 12/11/17 11:11 Laboratory Results 12/11/17 04:33 12/11/17 04:33 12/10/17 12/11/17 12/12/17 05:59 05:59 05:59 Intake Total 770 Balance 770 - Physical Exam Constitutional: chronically ill appearing, other (thin) Eyes: PERRL Ears, Nose, Mouth, Throat: hearing normal Cardiovascular: regular rate and rhythym Respiratory: no respiratory distress, reduced air movement Gastrointestinal: normoactive bowel sounds Skin: warm, No normal color (flushed) Musculoskeletal: full muscle strength Neurologic: AAOx3 Psychiatric: interacting appropriately ICD10 Worksheet Patient Problems: Problems Problem Status Onset Hospital-acquired pneumonia Acute Hypoxia Acute Back pain Acute Chronic obstructive pulmonary disease with acute exacerbation Acute
--- NOTE | 2017-12-11 17:13 | ASMTCMCOM ---
CM Note CM Note Notes: Pt recently dc'd from hospital to 2 nights respite at the [facility] in [facility]. Pt is a homeless gentleman and typically stays in the nursing home. DC needs uncertain, will continue to follow. DC Plan: TBD Date Signed: 12/11/2017 05:13 PM Electronically Signed By:Venus Mccormick RN
[2017-12-12] MEDS: methylPREDNISolone SOD SUCC 40 MG/ML VIAL IVP SCH ×5 (00:07→23:16)
[2017-12-12 05:33] LABS: PLATELET COUNT 366 10^3/uL (150-400)
[2017-12-12] MEDS: IPRATROPIUM/ALBUTEROL 3 ML DEYVIAL IH SCH ×4 (05:44→20:35)
[2017-12-12] MEDS: guaiFENesin 600 MG TAB.ER PO SCH ×2 (09:04→23:13)
[2017-12-12] MEDS: traMADol 50 MG TAB PO PRN ×3 (09:04→23:13)
[2017-12-12] MEDS: BENZONATATE 100 MG CAP PO SCH ×3 (09:05→23:15)
[2017-12-12] MEDS: ENOXAPARIN 40 MG/0.4 ML SYR SC SCH (09:05)
--- NOTE | 2017-12-12 13:41 | HOSPPROG ---
Hospitalist Progress Note Assessment/Plan: Patient is a 52-year-old gentleman who was recently discharged from [facility]. At that time he was diagnosed with a human metapneumovirus. He returned to the emergency room with shortness of breath and cough. Today is my 1st encounter with the patient. Chart reviewed. * acute hypoxemic respiratory failure -multifactorial, likely due to COPD and pneumonia -continue supportive treatment with inhalers and oxygen * pneumonia, right upper lobe -ID consult, ? abnormal PNA -concern for healthcare pneumonia with cefepime and Levaquin, but sputum cx on recent admit showed strept pna, will treat solely w Levaquin -patient is also being checked for possible mycobacterium tuberculosis (#1 sputum is currently pending) -patient has a history of tuberculosis, concerning is he has night sweats and weight loss -will place in a negative pressure room *COPD exacerbation -steroids and neb treatments * leukocytosis -worse today -needs further lab testing -could be due to the above the was also treated with steroids * nicotine dependence -cessation recommended on patch *homelessness *dvt prophylaxis: LMWH *Plan: follow afb's, cont current treatment ID consult D/W Dr Mcdermott cont negative pressure room Subjective: Feeling short of breath today. Slept ok. No pain. Objective: Vital Signs Temp Pulse Resp BP Pulse Ox 36.5 C 83 15 108/75 92 12/12/17 11:38 12/12/17 12:04 12/12/17 12:04 12/12/17 11:38 12/12/17 12:04 Microbiology 12/11/17 10:39 Mycobacterial Smear (REBECA) - Final Sputum, Expectorated Laboratory Results 12/12/17 04:18 12/12/17 04:18 12/11/17 12/12/17 12/13/17 05:59 05:59 05:59 Intake Total 770 600 Balance 770 600 - Physical Exam Constitutional: not in pain, chronically ill appearing, cachectic Eyes: PERRL, anicteric sclera, EOMI Ears, Nose, Mouth, Throat: moist mucous membranes, hearing normal, ears appear normal Cardiovascular: regular rate and rhythym, No JVD, No tachycardia, No edema Respiratory: no respiratory distress, no rales or rhonchi, reduced air movement Gastrointestinal: normoactive bowel sounds, No tenderness, No ascites Skin: warm, normal color, No mottled Musculoskeletal: normal joint ROM, no joint effusions, generalized weakness Neurologic: AAOx3 Psychiatric: interacting appropriately, not encephalopathic, thought process linear, poor insight ICD10 Worksheet Patient Problems: Problems Problem Status Onset Back pain Acute Chronic obstructive pulmonary disease with acute exacerbation Acute Hypoxia Acute Hospital-acquired pneumonia Acute
--- NOTE | 2017-12-12 19:44 | GCON ---
[f rep st] CONSULTATION DATE OF CONSULTATION: 12/12/2017 REQUESTING PROVIDER: Callie Bhakta, Nurse Practitioner. REASON FOR CONSULTATION: Right upper lobe pneumonia with leukocytosis. HISTORY OF PRESENT ILLNESS: Patient is a 52-year-old homeless male with a past medical history of pu lmonary tuberculosis, who was admitted to [facility] from 12/03/17 through 12/05/17 for a viral upper respiratory tract infection. At the time of his evaluation, he was noted to have a re spiratory PCR positive for human metapneumovirus. He received a single dose of azithromycin at time of presentation for that hospitalization. Sputum sample obtained during that hospitalization has carlene wn Streptococcus pneumoniae. Gram stain of the specimen did show 4+ GPCs in chains. Isolate was not ed to be penicillin susceptible. Chest x-ray on 12/03/17 during initial hospitalization showed no ac iliamna pneumonia. Stable apical scarring and granulomas were noted. Patient returned on 12/10/17 with complaints of increasing shortness of breath and cough. He was also noted to have associated hypoxia . Patient did not describe having fever or chills. He does note that he has had significant weight loss over the last year and a half and has not been able to put on weight. He has not experienced he moptysis. He does describe having some central pleuritic chest pain. CT scan of the chest was perfo rmed which shows findings of right upper lobe pneumonia with some nodularity and tree-in-bud appearan ce in the right lower lobe. Patient does have evidence of prior granulomatous disease and apical ple ural scar. He initially was started on cefepime and levofloxacin for possible healthcare-associated pneumonia and this was streamlined subsequently to oral levofloxacin. Patient has also been maintain ed on Solu-Medrol 40 mg IV q.6 hours. He currently has been homeless for many years and is living in the [facility]. He describes having pulmonary tuberculosis in the , which was tr eated in [place], [place]. He believes he received approximately 18 months' of therapy. He does not know which portion of his lung was affected or if he had drug-resistant disease. He describes b eing treated with penicillin at the time of his tuberculosis evaluation and notes it "almost killed m e." He cannot further elucidate, although describes some organ dysfunction. He has had 1 sputum for AFB obtained during this hospitalization which is smear negative. Given the above findings, I am no w asked to assist in his ongoing management. PAST MEDICAL HISTORY: As outlined above, history of pulmonary tuberculosis, COPD. PAST SURGICAL HISTORY: Herniorrhaphy, back surgery. CURRENT MEDICATIONS: Levofloxacin 750 mg orally daily, albuterol nebs, DuoNeb, Tessalon Perles 100 m g p.o. t.i.d., Lovenox 40 mg subcu daily, Mucinex 1,200 mg p.o. b.i.d., methylprednisolone 40 mg IV q .6 hours, Nicoderm CQ 21 mg patch applied daily, Ultram as needed for moderate pain. ALLERGIES: Penicillins as outlined above; he tolerated 3 doses of cefepime without difficulty. SOCIAL HISTORY: Patient is currently homeless and staying in the [facility]. He smoke s daily and has smoked as much as 2 packs per day. He recently was drinking 1-2 pints of alcohol per day. He denies current drug use. FAMILY HISTORY: Coronary artery disease. REVIEW OF SYSTEMS: Outside that noted in the HPI, remainder of a 10-system review is unremarkable. PHYSICAL EXAMINATION: VITAL SIGNS: Temperature 36.7, heart rate 71, respiratory rate 18, oxygen sat uration 92% on 1.5 L, blood pressure 123/68. GENERAL: The patient is a thin male in no acute distre ss. He appears nontoxic. HEENT: There is no scleral icterus, conjunctival injection, or conjunctiv al petechiae. Oropharynx shows moist mucous membranes with dentition being in poor repair. There is no nasal discharge. There is no tenderness over the sinuses. NECK: Supple without palpable lympha denopathy or thyromegaly. CHEST: Clear to auscultation bilaterally without adventitious sounds. Re spiratory effort is normal. There is a frequent cough present. CARDIOVASCULAR: Regular rate and rh ythm without murmurs, gallops, rubs. ABDOMEN: Soft, nontender, nondistended. There is no palpable organomegaly. Bowel sounds are present. MUSCULOSKELETAL: There is no cyanosis, clubbing, or edema. SKIN: No stigmata of endocarditis. Skin is warm and dry to touch. NEUROLOGIC: Patient is alert and interacts appropriately with examiner. Cranial nerves 2-12 are grossly intact. Sensation is carlene ssly intact. Muscle tone and bulk are normal. LABORATORY DATA: White blood cell count 31.9, hematocrit 40.5, platelets 366, neutrophils 84%, bands 10%. Serum creatinine 0.7, venous lactate 1.3. HIV antibody in 2016 negative. QuantiFERON testing in 2016 positive. Blood cultures x2 sets are no growth to date. Sputum from 12/04/17 shows penicilli n susceptible Streptococcus pneumoniae. Respiratory PCR from 12/03/17 shows human metapneumovirus. AFB smear x1 is negative. IMAGING: CT scan as outlined above, which was reviewed and interpreted by me today. IMPRESSION: 1. Right upper lobe pneumonia after recent viral illness: Most likely the right upper lobe pneumoni a is due to Streptococcus pneumoniae given its recent isolation on sputum sample, which may have occu rred superimposed on preceding viral illness. Given his prior history of pulmonary tuberculosis, nee d to be sure there is no evidence of recurrent pulmonary tuberculosis, although I suspect this will b e less likely. Given fluoroquinolones have some activity against Mycobacterium tuberculosis, will mo dify antibiotic therapy to ceftriaxone to avoid any improvement that might be seen with levofloxacin in the event mycobacterial organisms are present. Continue airborne isolation. Will send a sputum f or NAAT testing by gene expert at [facility] to assess for any evidence of Mycobacterium tubercu losis. 2. Leukocytosis: Suspect this is multifactorial with combination of current pneumonia and methylpre dnisolone use contributing. No diarrhea to suggest Clostridium difficile. Clinically, he does not a ppear acutely toxic. RECOMMENDATIONS: 1. Ceftriaxone 2 g IV daily. 2. Discontinue levofloxacin. 3. Continue to obtain AFB sputum and will send for NAAT testing. 4. HIV antibody. 5. Follow clinical response to antibiotic therapy and white blood cell count over time. Thank you for this consultation. We will continue to follow the patient with you. /[id number]/MODL
[2017-12-13 05:20] LABS: PLATELET COUNT 343 10^3/uL (150-400)
[2017-12-13] MEDS: methylPREDNISolone SOD SUCC 40 MG/ML VIAL IVP SCH ×3 (05:21→19:20)
[2017-12-13] MEDS: IPRATROPIUM/ALBUTEROL 3 ML DEYVIAL IH SCH ×4 (05:25→20:58)
[2017-12-13] MEDS: traMADol 50 MG TAB PO PRN ×2 (06:30→15:49)
[2017-12-13] MEDS: BENZONATATE 100 MG CAP PO SCH ×3 (09:11→22:15)
[2017-12-13] MEDS: ENOXAPARIN 40 MG/0.4 ML SYR SC SCH (09:11)
[2017-12-13] MEDS: guaiFENesin 600 MG TAB.ER PO SCH ×2 (09:11→22:14)
[2017-12-13] MEDS: cefTRIAXone 2 GM in STERILE WATER INJ 20 ML IV SCH (09:11)
--- NOTE | 2017-12-13 11:44 | HOSPPROG ---
Hospitalist Progress Note Assessment/Plan: Patient is a 52-year-old gentleman who was recently discharged from [facility]. At that time he was diagnosed with a human metapneumovirus. He returned to the emergency room with shortness of breath and cough. * acute hypoxemic respiratory failure -multifactorial, likely due to COPD and pneumonia -continue supportive treatment with inhalers and oxygen * pneumonia, right upper lobe -ID consult, ? abnormal PNA, labs pending -CTX -patient is also being checked for possible mycobacterium tuberculosis (#1 sputum is currently out for NAAT) -patient has a history of tuberculosis, concerning is he has night sweats and weight loss -negative pressure room *COPD exacerbation -steroids and neb treatments * leukocytosis -slight improvement today -needs further lab testing -could be due to the above the was also treated with steroids * nicotine dependence -cessation recommended on patch *homelessness *dvt prophylaxis: LMWH *Plan: follow afb's, cont current treatment ID consult cont negative pressure room Subjective: Up in the chair. Feels ok. Still feeling sob. Objective: Vital Signs Temp Pulse Resp BP Pulse Ox 36.8 C 66 14 110/62 88 L 12/13/17 08:00 12/13/17 10:32 12/13/17 10:32 12/13/17 08:00 12/13/17 10:32 Microbiology 12/11/17 10:39 Mycobacterial Smear (REBECA) - Final Sputum, Expectorated 12/10/17 23:31 MRSA Culture - Final Nasal, Sinus - Swab Laboratory Results 12/13/17 05:15 12/13/17 05:15 12/12/17 12/13/17 12/14/17 05:59 05:59 05:59 Intake Total 600 250 Balance 600 250 - Physical Exam Constitutional: chronically ill appearing, cachectic Eyes: PERRL, anicteric sclera Ears, Nose, Mouth, Throat: moist mucous membranes, hearing normal Cardiovascular: regular rate and rhythym, No JVD Respiratory: no respiratory distress, reduced air movement Gastrointestinal: No tenderness, No ascites Skin: warm, normal color Musculoskeletal: no joint effusions, generalized weakness Neurologic: AAOx3 Psychiatric: interacting appropriately, not anxious, not encephalopathic ICD10 Worksheet Patient Problems: Problems Problem Status Onset Back pain Acute Chronic obstructive pulmonary disease with acute exacerbation Acute Hypoxia Acute Hospital-acquired pneumonia Acute
--- NOTE | 2017-12-13 13:32 | PCMIDPN ---
Assessment/Plan: Assessment: Multilobar pneumonia-unclear etiology but with patient with a history of pulmonary tuberculosis it is reasonable to rule this out. 1st AFB smear is negative. 2nd 1 is pending. NAAT sent to [facility] and is pending. Currently being covered with ceftriaxone monotherapy and clinically looks comfortable. Plan: 1. Continue ceftriaxone monotherapy. 2. Follow-up tuberculosis test at [facility]. 3. Continue AFB smear daily x3. Subjective: Patient is sitting up comfortably in his chair. States he has continued congestion in the chest area although it feels more like the upper bronchial area than the deep lung. No fevers or chills. Objective: Ceftriaxone # 1 Vital Signs Temp Pulse Resp BP Pulse Ox 36.4 C 84 16 140/79 H 95 12/13/17 12:00 12/13/17 12:00 12/13/17 12:00 12/13/17 12:00 12/13/17 12:00 Microbiology 12/11/17 10:39 Mycobacterial Smear (REBECA) - Final Sputum, Expectorated 12/10/17 23:31 MRSA Culture - Final Nasal, Sinus - Swab Laboratory Results 12/13/17 05:15 12/13/17 05:15 12/12/17 12/13/17 12/14/17 05:59 05:59 05:59 Intake Total 600 250 Balance 600 250 - Physical Exam General Appearance: WD/WN, alert, no apparent distress, thin, non-toxic Respiratory: lungs clear, normal breath sounds, No respiratory distress Cardiac/Chest: regular rate, rhythm, No tachycardia Skin: normal color, warm/dry, No rash Neuro/Psych: alert, normal mood/affect, oriented x 3 ICD10 Worksheet Patient Problems: Problems Problem Status Onset Hospital-acquired pneumonia Acute Hypoxia Acute Back pain Acute Chronic obstructive pulmonary disease with acute exacerbation Acute
--- NOTE | 2017-12-13 13:53 | ASMTCMCOM ---
CM Note CM Note Notes: Pt is being tested for TB, 1st one negative, 2nd one pending. [facility] when medically stable, CM w/f. DC Plan: Prison Date Signed: 12/13/2017 01:52 PM Electronically Signed By:Venus Mccormick RN
[2017-12-14] MEDS: traMADol 50 MG TAB PO PRN ×3 (00:11→18:41)
[2017-12-14] MEDS: methylPREDNISolone SOD SUCC 40 MG/ML VIAL IVP SCH ×5 (00:11→18:50)
[2017-12-14] MEDS: IPRATROPIUM/ALBUTEROL 3 ML DEYVIAL IH SCH ×4 (05:23→20:25)
[2017-12-14] MEDS: BENZONATATE 100 MG CAP PO SCH ×3 (08:08→21:15)
[2017-12-14] MEDS: ENOXAPARIN 40 MG/0.4 ML SYR SC SCH (08:08)
[2017-12-14] MEDS: guaiFENesin 600 MG TAB.ER PO SCH ×2 (08:08→21:15)
[2017-12-14] MEDS: cefTRIAXone 2 GM in STERILE WATER INJ 20 ML IV SCH (08:08)
--- NOTE | 2017-12-14 10:18 | HOSPPROG ---
Hospitalist Progress Note Assessment/Plan: Patient is a 52-year-old gentleman who was recently discharged from [facility]. At that time he was diagnosed with a human metapneumovirus. He returned to the emergency room with shortness of breath and cough. * acute hypoxemic respiratory failure -multifactorial, likely due to COPD and pneumonia -continue supportive treatment with inhalers and oxygen * Multilobar pneumonia- -unclear etiology but with patient with a history of pulmonary tuberculosis it is reasonable to rule this out. -1st AFB smear is negative. -2nd 1 is pending. -NAAT sent to [facility] and is pending. -Currently being covered with ceftriaxone monotherapy and clinically looks comfortable. -Continue AFB smear daily x3. -negative pressure room *COPD exacerbation -steroids and neb treatments * leukocytosis -slight improvement, follow -needs further lab testing -could be due to the above the was also treated with steroids * nicotine dependence -cessation recommended on patch *homelessness *dvt prophylaxis: LMWH *Plan: follow afb's, cont current treatment cont negative pressure room Subjective: Breathing still feeling tight. Night sweats continue. No other issues. Objective: Vital Signs Temp Pulse Resp BP Pulse Ox 36.5 C 74 16 109/65 96 12/14/17 08:10 12/14/17 08:10 12/14/17 08:10 12/14/17 08:10 12/14/17 08:10 Microbiology 12/12/17 19:26 Mycobacterial Smear (REBECA) - Final Sputum, Expectorated 12/11/17 10:39 Mycobacterial Smear (REBECA) - Final Sputum, Expectorated Laboratory Results 12/13/17 05:15 12/13/17 05:15 12/13/17 12/14/17 12/15/17 05:59 05:59 05:59 Intake Total 250 400 Balance 250 400 - Physical Exam Constitutional: chronically ill appearing, cachectic Eyes: PERRL, anicteric sclera Ears, Nose, Mouth, Throat: moist mucous membranes, hearing normal Cardiovascular: No JVD, No edema Respiratory: no rales or rhonchi, reduced air movement Gastrointestinal: No tenderness, No ascites Skin: warm, normal color Musculoskeletal: no joint effusions, generalized weakness Neurologic: AAOx3 Psychiatric: interacting appropriately, not anxious, not encephalopathic ICD10 Worksheet Patient Problems: Problems Problem Status Onset Back pain Acute Chronic obstructive pulmonary disease with acute exacerbation Acute Hypoxia Acute Hospital-acquired pneumonia Acute
[2017-12-14] MEDS: ACETAMINOPHEN 325 MG TAB PO PRN (15:19)
--- NOTE | 2017-12-14 19:05 | PCMIDPN ---
Assessment/Plan: Assessment/Plan: 1. Multilobar pneumonia: - most likely secondary bacerial infection after recent viral illness (human metapneumovirus) - recent pneumococcus isolated 12/04/17 -however given previous hx of pulm TB being evaluated for TB. -sputums in progress for AFB and also sent to [facility] -Continue with Ceftriaxone for now. -wbc coming down, -blood cx ngtd Meds ceftriaxone 2g daily- 12/13/17 -steroids 40mg q6 Subjective: afebrile. coughing up phlegm. some sob with exertion. denies abd pain or diarrhea. Objective: Vital Signs Temp Pulse Resp BP Pulse Ox 36.6 C 52 L 16 126/80 H 96 12/14/17 19:00 12/14/17 19:00 12/14/17 19:00 12/14/17 19:00 12/14/17 19:00 Microbiology 12/12/17 19:26 Mycobacterial Smear (REBECA) - Final Sputum, Expectorated 12/11/17 10:39 Mycobacterial Smear (REBECA) - Final Sputum, Expectorated 12/13/17 19:25 Mycobacterial Smear (REBECA) - Final Sputum, Expectorated Laboratory Results 12/14/17 10:40 12/13/17 05:15 12/13/17 12/14/17 12/15/17 05:59 05:59 05:59 Intake Total 250 400 Balance 250 400 - Physical Exam General Appearance: alert, no apparent distress Respiratory: coarse breath sounds Cardiac/Chest: regular rate, rhythm Extremities: No swelling Abdomen: normal bowel sounds, non-tender, soft, No distended Skin: No erythema ICD10 Worksheet Patient Problems: Problems Problem Status Onset Hospital-acquired pneumonia Acute Hypoxia Acute Back pain Acute Chronic obstructive pulmonary disease with acute exacerbation Acute
[2017-12-15] MEDS: traMADol 50 MG TAB PO PRN ×3 (01:01→21:00)
[2017-12-15] MEDS: methylPREDNISolone SOD SUCC 40 MG/ML VIAL IVP SCH ×4 (01:02→18:28)
[2017-12-15] MEDS: IPRATROPIUM/ALBUTEROL 3 ML DEYVIAL IH SCH ×4 (05:54→21:46)
[2017-12-15] MEDS: ENOXAPARIN 40 MG/0.4 ML SYR SC SCH (09:22)
[2017-12-15] MEDS: BENZONATATE 100 MG CAP PO SCH ×3 (09:22→20:49)
[2017-12-15] MEDS: cefTRIAXone 2 GM in STERILE WATER INJ 20 ML IV SCH (09:22)
[2017-12-15] MEDS: guaiFENesin 600 MG TAB.ER PO SCH ×2 (09:22→20:49)
--- NOTE | 2017-12-15 13:29 | HOSPPROG ---
Hospitalist Progress Note Assessment/Plan: Patient is a 52-year-old gentleman who was recently discharged from [facility]. At that time he was diagnosed with a human metapneumovirus. He returned to the emergency room with shortness of breath and cough. * acute hypoxemic respiratory failure -multifactorial, likely due to COPD and pneumonia -continue supportive treatment with inhalers and oxygen * Multilobar pneumonia- -unclear etiology but with patient with a history of pulmonary tuberculosis it is reasonable to rule this out. -1st AFB smear is negative. -2nd 1 is pending. -NAAT sent to [facility] and is pending. -Currently being covered with ceftriaxone monotherapy and clinically looks comfortable. -Continue AFB smear daily x3. -negative pressure room *COPD exacerbation -steroids and neb treatments * leukocytosis -slight improvement, follow -needs further lab testing -could be due to the above the was also treated with steroids * nicotine dependence -cessation recommended on patch *homelessness *dvt prophylaxis: LMWH *Plan: follow afb's, cont current treatment cont negative pressure room Subjective: Feeling fine today. No specific issues. Objective: Vital Signs Temp Pulse Resp BP Pulse Ox 36.6 C 62 14 118/69 94 12/15/17 07:15 12/15/17 07:15 12/15/17 07:15 12/15/17 07:15 12/15/17 07:15 Microbiology 12/12/17 19:26 Mycobacterial Smear (REBECA) - Final Sputum, Expectorated 12/11/17 10:39 Mycobacterial Smear (REBECA) - Final Sputum, Expectorated 12/13/17 19:25 Mycobacterial Smear (REBECA) - Final Sputum, Expectorated Laboratory Results 12/14/17 10:40 12/13/17 05:15 12/14/17 12/15/17 12/16/17 05:59 05:59 05:59 Intake Total 400 1000 Balance 400 1000 - Physical Exam Constitutional: chronically ill appearing, cachectic Eyes: PERRL, anicteric sclera Ears, Nose, Mouth, Throat: moist mucous membranes, hearing normal Cardiovascular: No JVD, No edema Respiratory: no respiratory distress, no rales or rhonchi Gastrointestinal: No tenderness, No ascites Skin: warm, normal color Musculoskeletal: no joint effusions, generalized weakness Neurologic: AAOx3 Psychiatric: not anxious, not encephalopathic ICD10 Worksheet Patient Problems: Problems Problem Status Onset Back pain Acute Chronic obstructive pulmonary disease with acute exacerbation Acute Hypoxia Acute Hospital-acquired pneumonia Acute
[2017-12-16] MEDS: methylPREDNISolone SOD SUCC 40 MG/ML VIAL IVP SCH ×2 (03:05→06:40)
[2017-12-16] MEDS: IPRATROPIUM/ALBUTEROL 3 ML DEYVIAL IH SCH ×4 (05:54→22:15)
[2017-12-16] MEDS: cefTRIAXone 2 GM in STERILE WATER INJ 20 ML IV SCH (09:15)
[2017-12-16] MEDS: guaiFENesin 600 MG TAB.ER PO SCH ×2 (09:19→20:51)
[2017-12-16] MEDS: BENZONATATE 100 MG CAP PO SCH ×3 (09:19→20:51)
[2017-12-16] MEDS: ENOXAPARIN 40 MG/0.4 ML SYR SC SCH (09:19)
[2017-12-16] MEDS: traMADol 50 MG TAB PO PRN ×2 (09:27→20:50)
--- NOTE | 2017-12-16 10:26 | ASMTCMCOM ---
CM Note CM Note Notes: CM met w/ Callie Bhakta NP regarding d/c POC. Still awaiting for TB result. Anticipate that pt will be here for a couple more days. Pt will d/c independently to the senior living when medically stable. Pt continues to be on ivabx. No therapies ordered at this time. CM available for d/c needs. Plan: Independent Date Signed: 12/16/2017 10:25 AM Electronically Signed By:LEOLA Cunha
--- NOTE | 2017-12-16 10:27 | PCMIDPN ---
Assessment/Plan: Assessment: Multilobar pneumonia-unclear etiology. TB testing is negative. NAAT to [facility] is negative. Currently being covered with ceftriaxone monotherapy and clinically looks comfortable. Plan: 1. Continue ceftriaxone monotherapy. 2. Follow clinical course. Subjective: Patient is resting comfortably in his hospital bed. Still relates wheezing and tightness in his chest. Overall he says he is clinically improving. Cough continues but is nonproductive. No fevers or chills. Objective: Ceftriaxone # 4 Vital Signs Temp Pulse Resp BP Pulse Ox 36.7 C 78 16 119/73 95 12/16/17 08:00 12/16/17 08:00 12/16/17 08:00 12/16/17 08:00 12/16/17 08:00 Microbiology 12/10/17 19:50 Blood Culture - Final Blood 12/10/17 19:35 Blood Culture - Final Blood Laboratory Results 12/14/17 10:40 12/13/17 05:15 12/15/17 12/16/17 12/17/17 05:59 05:59 05:59 Intake Total 1000 3000 Balance 1000 3000 - Physical Exam General Appearance: WD/WN, alert, no apparent distress, thin, non-toxic Respiratory: lungs clear, wheezing, bronchial breath sounds, No normal breath sounds Cardiac/Chest: regular rate, rhythm, No tachycardia, No systolic murmur Extremities: non-tender, normal inspection Skin: normal color, warm/dry, No rash Neuro/Psych: alert, normal mood/affect, oriented x 3 ICD10 Worksheet Patient Problems: Problems Problem Status Onset Hospital-acquired pneumonia Acute Hypoxia Acute Back pain Acute Chronic obstructive pulmonary disease with acute exacerbation Acute
[2017-12-16 12:13] LABS: PLATELET COUNT 314 10^3/uL (150-400)
--- NOTE | 2017-12-16 13:06 | HOSPPROG ---
Hospitalist Progress Note Assessment/Plan: Patient is a 52-year-old gentleman who was recently discharged from [facility]. At that time he was diagnosed with a human metapneumovirus. He returned to the emergency room with shortness of breath and cough. * acute hypoxemic respiratory failure -multifactorial, likely due to COPD and pneumonia -continue supportive treatment with inhalers and oxygen * Multilobar pneumonia- -TB testing is negative. -NAAT to [facility] is negative -ceftriaxone monotherapy -unclear etiology -dc precautions *COPD exacerbation -steroids and neb treatments -DC steriods today * leukocytosis -slight improvement, follow * nicotine dependence -cessation recommended on patch *homelessness *dvt prophylaxis: LMWH *Plan: cont current treatment D/W Dr Parker and CM Subjective: Feeling ok. Up in chair. No specific issues. Objective: Vital Signs Temp Pulse Resp BP Pulse Ox 36.7 C 65 12 119/73 96 12/16/17 08:00 12/16/17 11:42 12/16/17 11:42 12/16/17 08:00 12/16/17 11:42 Microbiology 12/12/17 19:26 Mycobacterial Smear (REBECA) - Final Sputum, Expectorated 12/11/17 10:39 Mycobacterial Smear (REBECA) - Final Sputum, Expectorated 12/10/17 19:50 Blood Culture - Final Blood 12/10/17 19:35 Blood Culture - Final Blood Laboratory Results 12/16/17 11:55 12/13/17 05:15 12/15/17 12/16/17 12/17/17 05:59 05:59 05:59 Intake Total 1000 3000 Balance 1000 3000 - Physical Exam Constitutional: not in pain, chronically ill appearing, cachectic Eyes: PERRL, anicteric sclera, EOMI Ears, Nose, Mouth, Throat: moist mucous membranes, hearing normal, ears appear normal Cardiovascular: No JVD, No tachycardia, No edema Respiratory: no respiratory distress, no rales or rhonchi, reduced air movement Gastrointestinal: normoactive bowel sounds, No tenderness, No ascites Skin: warm, normal color, No mottled Musculoskeletal: normal joint ROM, no joint effusions, generalized weakness Neurologic: AAOx3 Psychiatric: interacting appropriately, not anxious, not encephalopathic, thought process linear ICD10 Worksheet Patient Problems: Problems Problem Status Onset Back pain Acute Chronic obstructive pulmonary disease with acute exacerbation Acute Hypoxia Acute Hospital-acquired pneumonia Acute
[2017-12-17] MEDS: IPRATROPIUM/ALBUTEROL 3 ML DEYVIAL IH SCH ×4 (05:44→22:41)
[2017-12-17] MEDS: cefTRIAXone 2 GM in STERILE WATER INJ 20 ML IV SCH (08:28)
[2017-12-17] MEDS: ENOXAPARIN 40 MG/0.4 ML SYR SC SCH (08:28)
[2017-12-17] MEDS: guaiFENesin 600 MG TAB.ER PO SCH ×2 (08:29→20:49)
[2017-12-17] MEDS: BENZONATATE 100 MG CAP PO SCH ×3 (08:29→20:49)
--- NOTE | 2017-12-17 08:36 | HOSPPROG ---
Hospitalist Progress Note Assessment/Plan: Patient is a 52-year-old gentleman who was recently discharged from [facility]. At that time he was diagnosed with a human metapneumovirus. He returned to the emergency room with shortness of breath and cough. Today is my 1st encounter with the patient. Chart reviewed. *Multilobar pneumonia-unclear etiology. - TB testing is negative. NAAT to [facility] is negative. - Ceftriaxone * acute hypoxemic respiratory failure -multifactorial, likely due to COPD and pneumonia -continue supportive treatment with inhalers and oxygen -on room air during my evaluation, O2 levels were 94% *COPD exacerbation -steroids dc , on neb treatments *chest pain -occurred last night, did not make nursing staff aware -recheck trop today which is negative, EKG shows nothing acute * leukocytosis -could be due to the above the was also treated with steroids * nicotine dependence -cessation recommended on patch *homelessness *dvt prophylaxis: LMWH *Plan: will discuss w ID about length of treatment w abx Subjective: Prasad says he had some chest pain during the night. Objective: Vital Signs Temp Pulse Resp BP Pulse Ox 36.6 C 66 16 118/71 93 12/16/17 22:27 12/17/17 08:31 12/17/17 08:31 12/16/17 22:27 12/17/17 08:31 Microbiology 12/12/17 19:26 Mycobacterial Smear (REBECA) - Final Sputum, Expectorated 12/11/17 10:39 Mycobacterial Smear (REBECA) - Final Sputum, Expectorated 12/10/17 19:50 Blood Culture - Final Blood 12/10/17 19:35 Blood Culture - Final Blood Laboratory Results 12/16/17 11:55 12/13/17 05:15 12/16/17 12/17/17 12/18/17 05:59 05:59 05:59 Intake Total 3000 720 Balance 3000 720 - Physical Exam Constitutional: no apparent distress, other (thin) Eyes: PERRL Ears, Nose, Mouth, Throat: hearing normal Cardiovascular: regular rate and rhythym Respiratory: no respiratory distress, reduced air movement (bases, poor expiratory breath sounds) Skin: warm Musculoskeletal: full muscle strength Neurologic: AAOx3 Psychiatric: interacting appropriately ICD10 Worksheet Patient Problems: Problems Problem Status Onset Hospital-acquired pneumonia Acute Hypoxia Acute Back pain Acute Chronic obstructive pulmonary disease with acute exacerbation Acute
[2017-12-17] MEDS: traMADol 50 MG TAB PO PRN ×2 (08:46→16:31)
--- NOTE | 2017-12-17 10:40 | CPEKG ---
Heart Rate: 62 RR Interval: 968 P-R Interval: 156 QRSD Interval: 92 QT Interval: 412 QTC Interval: 419 P [place]: 82 QRS [place]: 76 T Wave [place]: 75 EKG Severity - BORDERLINE ECG - EKG Impression: SINUS RHYTHM EKG Impression: ST ELEV, PROBABLE NORMAL EARLY REPOL PATTERN EKG Impression: INCOMPLETE RIGHT BUNDLE BRANCH BLOCK Electronically Signed By: Antonio Kong 18-Dec-2017 16:00:25
[2017-12-17] MEDS: ACETAMINOPHEN 325 MG TAB PO PRN (20:53)
[2017-12-18] MEDS: traMADol 50 MG TAB PO PRN ×2 (00:41→09:22)
[2017-12-18] MEDS: IPRATROPIUM/ALBUTEROL 3 ML DEYVIAL IH SCH ×2 (05:29→11:05)
[2017-12-18 08:59] VITALS: BP 94/66; TEMP 98.1
[2017-12-18] MEDS: BENZONATATE 100 MG CAP PO SCH ×2 (09:22→16:15)
[2017-12-18] MEDS: guaiFENesin 600 MG TAB.ER PO SCH (09:22)
[2017-12-18] MEDS: ENOXAPARIN 40 MG/0.4 ML SYR SC SCH (09:23)
[2017-12-18] MEDS: cefTRIAXone 2 GM in STERILE WATER INJ 20 ML IV SCH (09:23)
[2017-12-18 09:32] LABS: PLATELET COUNT 258 10^3/uL (150-400)
--- NOTE | 2017-12-18 09:36 | HOSPPROG ---
Hospitalist Progress Note Assessment/Plan: Patient is a 52-year-old gentleman who was recently discharged from [facility]. At that time he was diagnosed with a human metapneumovirus. He returned to the emergency room with shortness of breath and cough. *Multilobar pneumonia-unclear etiology. - TB testing is negative. NAAT to [facility] is negative. - Ceftriaxone * acute hypoxemic respiratory failure -multifactorial, likely due to COPD and pneumonia -continue supportive treatment with inhalers -on room air during my evaluation, O2 levels were 94% *COPD exacerbation -steroids dc , on neb treatments *chest pain -none further, trop negative * leukocytosis -could be due to the above the was also treated with steroids -recheck labs prior to dc * nicotine dependence -cessation recommended on patch *homelessness -ask CM to reserve long term bed *dvt prophylaxis: LMWH *Plan: will discuss w ID about length of treatment w abx Subjective: Prasad has no complaints. Objective: Vital Signs Temp Pulse Resp BP Pulse Ox 36.7 C 81 16 94/66 L 91 L 12/18/17 08:00 12/18/17 08:00 12/18/17 08:00 12/18/17 08:00 12/18/17 08:00 Microbiology 12/13/17 19:25 Mycobacterial Smear (REBECA) - Final Sputum, Expectorated 12/12/17 19:26 Mycobacterial Smear (REBECA) - Final Sputum, Expectorated 12/11/17 10:39 Mycobacterial Smear (REBECA) - Final Sputum, Expectorated Laboratory Results 12/13/17 05:15 12/17/17 12/18/17 12/19/17 05:59 05:59 05:59 Intake Total 720 Balance 720 - Physical Exam Constitutional: no apparent distress, other (thin) Eyes: PERRL Ears, Nose, Mouth, Throat: hearing normal Respiratory: no respiratory distress Skin: warm Musculoskeletal: full muscle strength Neurologic: AAOx3 Psychiatric: interacting appropriately ICD10 Worksheet Patient Problems: Problems Problem Status Onset Hospital-acquired pneumonia Acute Hypoxia Acute Back pain Acute Chronic obstructive pulmonary disease with acute exacerbation Acute
[2017-12-18 11:12] VITALS: PULSE 72; RESP 18; O2SAT 92
--- NOTE | 2017-12-18 12:31 | ASMTLACE ---
DANIKA Length of stay for Answers: 7-13 days current admission Acuity / Level of Answers: Yes Care: Did the patient have an inpatient admission? Comorbidities - select Answers: Chronic pulmonary disease all that apply # of Emergency department Answers: 3-4 visits in the last 6 months Social determinants Answers: History of substance abuse (ETOH, street drugs, prescription drugs, etc.) Homelessness (street, fci) Score: 19 Date Signed: 12/18/2017 12:30 PM Electronically Signed By:Venus Mccormick RN
--- NOTE | 2017-12-18 12:38 | GDS ---
[f rep st] DISCHARGE SUMMARY DISCHARGE DIAGNOSIS: 1. Multilobar pneumonia. 2. Acute hypoxemic respiratory failure. 3. Chronic obstructive pulmonary disease exacerbation. 4. Chest pain. 5. Leukocytosis. 6. Nicotine dependence. 7. Homelessness. CONSULTATION: Dr. Michele Mcdermott. HISTORY: Briefly, Mr. Ortega is a 52-year-old gentleman who was recently discharged with an upper re spiratory viral infection. At that time, he was diagnosed with a human metapneumovirus. He came ryan to the emergency room because he had subjective shortness of breath and was hypoxic. He had a CT o f his chest, which did not show any PE, but showed probable pneumonia in the right upper lobe. He wa s seen and evaluated by the Infectious Disease team out of possible concern of tuberculosis. He has a past medical history of this. He was treated with ceftriaxone. He had AFB sputums and NAAT testin g that were all negative. Today, he will be discharged home with followup with his primary care prov ider. He will continue antibiotics for 7 more days. HOSPITAL COURSE: 1. Multilobar lobar pneumonia. TB testing is negative. NAAT to [facility] is negative. He is on ceftriaxone. He will be discharged home on doxycycline. 2. Acute hypoxemic respiratory failure. This is resolved. His oxygen levels have been stable on ro om air for the last 2 days. 3. COPD exacerbation, stable. Recommendation is to stop smoking. 4. Chest pain, none further. Troponin was checked. This is negative. 5. Leukocytosis. This is due to the above, also was on steroids. 6. Nicotine dependence. Cessation recommended. He has a patch in place. 7. Homelessness. He has a bed reserved tonight at the care home. DISCHARGE CONDITION: Stable. Blood pressure is 112/72, heart rate 79, respiratory rate is 16, O2 sat urations on room air 94%, temperature is 36.6 Celsius. MEDICATIONS AT DISCHARGE: Please see the EMR. DISCHARGE INSTRUCTIONS: 1. To continue doxycycline, 1 in the morning and 1 at night. 2. Avoid being in the sun for long periods of time on this medication. 3. To follow up with his primary care doctor for repeat chest x-ray in 6 weeks. 4. He will have a followup appointment made with his primary care provider prior to discharge. TIME SPENT: Greater than 30 minutes discharging and coordinating his care. /[id number]/MODL
--- NOTE | 2017-12-18 12:40 | ASMTCMCOM ---
CM Note CM Note Notes: D/w [employer], pt to dc to snf today. CM reserved bed at the snf, gave letter stating his dates of hospitalization, and scheduled an appointment at the [facility] for December 20 at . Date Signed: 12/18/2017 12:40 PM Electronically Signed By:Venus Mccormick RN
[2017-12-18] MEDS: ACETAMINOPHEN 325 MG TAB PO PRN (16:15)
== END 2017-12-18 17:00 | disposition home or self-care (01) | DRG 193 ==
LOC: EDUNIT# → F3E 20:25
PROVIDERS: ADMIT Internal Medicine; ATTEND Internal Medicine
DX: J15.4 Pneumonia due to other streptococci (principal); J96.01 Acute respiratory failure with hypoxia; J44.1 Chronic obstructive pulmonary disease with (acute) exacerbation; F17.200 Nicotine dependence, unspecified, uncomplicated; Z59.0 Homelessness; Z86.11 Personal history of tuberculosis
CPT/HCPCS: 96374; J0692; J0696; J1650; J1956; J2920; J2930; Q9967

== ENCOUNTER 2018-01-06 19:48 | Emergency (ER) | payer MEDICAID ==
[~2018-01-06 19:48] MED LIST changes: -PNEUMOCOCCAL 0.5ML VACCINE VIAL IM ONE; +predniSONE 20 MG TAB PO SCH
[2018-01-06] MEDS ORDERED: IPRATROPIUM/ALBUTEROL 3 ML DEYVIAL IH ONE (19:52)
[2018-01-06] MEDS ORDERED: methylPREDNISolone SOD SUCC 125 MG/2 ML VIAL IVP ONE (19:53)
--- NOTE | 2018-01-06 19:58 | CPEKG ---
Heart Rate: 58 RR Interval: 1034 P-R Interval: 184 QRSD Interval: 96 QT Interval: 444 QTC Interval: 437 P [place]: 79 QRS [place]: 73 T Wave [place]: 78 EKG Severity - ABNORMAL ECG - EKG Impression: SINUS RHYTHM EKG Impression: NONSPECIFIC T ABNORMALITIES, ANT-LAT LEADS EKG Impression: Similar to previous Electronically Signed By: oMnty Andrew 06-Jan-2018 19:58:59
--- NOTE | 2018-01-06 19:58 | EDPHY ---
General Time Seen by Provider: 01/06/18 19:53 Narrative: CHIEF COMPLAINT: Shortness of breath, difficulty breathing, chest pain HISTORY OF PRESENT ILLNESS: Patient arrives by EMS and is seen at time of arrival. He complains of shortness of breath, wheezing, difficulty breathing chest pain. Most of the symptoms have been present for greater than 2 weeks. He was seen and admitted here for pneumonia. Discharged home on December 18 with doxycycline and smoking cessation recommendations. He says he finished the antibiotics. He is currently homeless and living in a snf and on the streets. He continues to smoke cigarettes and has no improvement in his symptoms. Symptoms are worse with exertion. They did not improved with use of his albuterol inhaler. He was at a restaurant when the symptoms acutely worsen, thus he called 911. EMS reports his oxygenation was in the low 90s on room air, 97% on 2 L. he did receive a DuoNeb treatment EN route. No steroids were given EN route. No 12 lead was performed. No other associated complaints or modifying factors. REVIEW OF SYSTEMS: Ten systems reviewed and are negative unless otherwise noted in the HPI PCP: Dr. Nichole Oneil SPECIALISTS: None PAST MEDICAL HISTORY: COPD, hypertension, pneumonia, tobacco dependence, TB status post treatment PAST SURGICAL HISTORY: No recent surgeries. SOCIAL HISTORY: Daily smoker of cigarettes. Recent admission to this hospital for pneumonia. Currently homeless. FAMILY HISTORY: Noncontributory EXAMINATION General Appearance: Alert, no distress, unkempt with wet clothes Head: normocephalic, atraumatic Eyes: Pupils equal and round, no conjunctival pallor or injection ENT, Mouth: Mucous membranes moist. Uvula midline. Neck: Normal inspection, supple, non-tender Respiratory: Harsh, scattered rhonchi and expiratory wheezes. No retractions or distress. Some consolidation bilaterally. Cardiovascular: Regular rate and rhythm. No murmur Gastrointestinal: Abdomen is soft and nontender Back: non-tender, no bony abnormalities Neurological: A&O, nonfocal, normal gait Skin: Warm and dry, no rash. No petechiae or purpura Extremities: Nontender, no pedal edema Psychiatric: Mood and affect normal DIFFERENTIAL DIAGNOSES: Including but not limited to COPD exacerbation, pneumonia, asthma exacerbation, hypercapnia, CHF exacerbation, pulmonary edema, PE, ACS MDM: 7:50 p.m. Chest pain, shortness of breath and wheezing. The patient is in no acute distress. He has very harsh and coarse rhonchi and expiratory wheezes. He does not exhibit respiratory failure. His oxygenation is well within normal limits on 2 L nasal cannula. Does have a history of COPD and asthma with recent diagnosis of pneumonia. He is also homeless. I have ordered laboratory studies, quality assurance monitor, chest x-ray, DuoNeb treatment and Solu-Medrol. 8:20 p.m. I have reviewed the patient's chest x-ray. Radiologist has read this as no acute finding. There are chronic changes as documented. Heart rate is currently 76 beats per minute. Blood pressure is 100/60. Oxygenation is 92%. 8:45 p.m. Notified by RN that the patient's pressure is marginal at 88-90 systolic. We will administer IV fluid. He is awake alert no acute distress. No mental status changes. His chemistries unremarkable. His CBC is unremarkable. His flu and RSV test are negative. 9:20 p.m. Patient re-evaluated. His vital signs are within normal limits. Blood pressure is well above 100 without any further IV fluid. Oxygenation is 92-96% on room air. I do feel he is stable for discharge home. Likely COPD exacerbation with no evidence of pneumonia. The chest pain he has had for greater than 3 days with a negative troponin. No EKG changes. He will be provided Levaquin and prednisone prescription for the medication assistance program. He has instructions to take this to completion. We discussed smoking cessation. We discussed follow up with primary care physician ED precautions. He is comfortable this plan and discharged home stable condition. SUPERVISION: Patient was independently examined, but I discussed the case with my secondary supervising physician Dr. Andrew - Diagnostics Imaging Results: Imaging Impressions Chest X-Ray 01/06/18 19:52 Impression: 1. No evidence of acute intrathoracic pathology. 2. Apical scarring and scattered parenchymal granulomas are chronic and unchanged. - History Smoking Status: Current every day smoker - Objective Vital Signs: Initial Vital Signs Temperature (C) 97.7 F 01/06/18 19:53 Heart Rate 78 01/06/18 19:53 Respiratory Rate 20 01/06/18 19:53 Blood Pressure 98/60 L 01/06/18 19:53 O2 Sat (%) 92 01/06/18 19:53 O2 Delivery Mode Room Air Allergies/Adverse Reactions: Penicillins Allergy (Verified 12/12/17 17:29) Home Medications: Medication Instructions Recorded Albuterol [Proventil Inhaler HFA 1 - 2 puffs IH Q4H PRN MDD SOB 12/03/17 (*)] Benzonatate [Tessalon Pearles] 100 mg PO TID 12/03/17 Ipratropium/Albuterol [Combivent 1 puffs IH TID 12/03/17 Respimat Inhal [place](*)] Meloxicam 7.5 mg PO BID PRN 12/03/17 traMADol [Ultram 50 mg (*)] 50 - 100 mg PO TID PRN 12/03/17 guaiFENesin [Mucinex 600 MG (*)] 1,200 mg PO BID tab.er 12/05/17 Nicotine [Nicoderm Cq 21 mg (*)] 21 mg TD DAILY PRN 12/10/17 Doxycycline Hyclate [Vibramycin 100 mg PO BID #14 cap 12/18/17 100 MG (*)] levOFLOXACIN [Levaquin] 500 mg PO DAILY #6 tablet 01/06/18 predniSONE [Deltasone] 60 mg PO DAILY #12 tablet 01/06/18 Laboratory Results: Laboratory Results 01/06/18 19:50 01/06/18 19:50 01/06/18 01/06/18 01/06/18 20:10 19:50 19:50 WBC RBC Hgb Hct MCV MCH MCHC RDW Plt Count MPV Neut % (Auto) Lymph % (Auto) Dent % (Auto) Eos % (Auto) Baso % (Auto) Nucleat RBC Rel Count Absolute Neuts (auto) Absolute Lymphs (auto) Absolute Monos (auto) Absolute Eos (auto) Absolute Basos (auto) Absolute Nucleated RBC Immature Gran % Immature Gran # PT 12.5 SEC SEC (12.0-15.0) INR 0.91 (0.83-1.16) APTT 26.9 SEC SEC (23.0-38.0) Sodium 147 mEq/L H mEq/L (135-145) Potassium 4.5 mEq/L mEq/L (3.5-5.2) Chloride 105 mEq/L mEq/L (97-110) Carbon Dioxide 28 mEq/l mEq/l (22-31) Anion Gap 14 mEq/L mEq/L (8-16) BUN 11 mg/dL mg/dL (7-23) Creatinine 0.8 mg/dL mg/dL (0.7-1.3) Estimated GFR > 60 Glucose 90 mg/dL mg/dL (70-100) Calcium 8.6 mg/dL mg/dL (8.5-10.4) Magnesium 2.2 mg/dL mg/dL (1.6-2.3) Troponin I < 0.012 ng/mL ng/mL (0.000-0.034) NT-Pro-B Natriuret Pep 74 pg/mL pg/mL (0-125) Lipase 94 IU/L IU/L (23-300) Nasal Influenza A PCR NEGATIVE FOR FLU A (NEGATIVE) Nasal Influenza B PCR NEGATIVE FOR FLU B (NEGATIVE) RSV (PCR) NEGATIVE FOR RSV (NEGATIVE) 01/06/18 19:50 WBC 5.89 10^3/uL 10^3/uL (3.80-9.50) RBC 4.69 10^6/uL 10^6/uL (4.40-6.38) Hgb 14.7 g/dL g/dL (13.7-17.5) Hct 44.1 % % (40.0-51.0) MCV 94.0 fL fL (81.5-99.8) MCH 31.3 pg pg (27.9-34.1) MCHC 33.3 g/dL g/dL (32.4-36.7) RDW 14.1 % % (11.5-15.2) Plt Count 330 10^3/uL 10^3/uL (150-400) MPV 9.7 fL fL (8.7-11.7) Neut % (Auto) 33.9 % L % (39.3-74.2) Lymph % (Auto) 49.4 % H % (15.0-45.0) Dent % (Auto) 8.5 % % (4.5-13.0) Eos % (Auto) 5.4 % % (0.6-7.6) Baso % (Auto) 0.8 % % (0.3-1.7) Nucleat RBC Rel Count 0.0 % % (0.0-0.2) Absolute Neuts (auto) 1.99 10^3/uL 10^3/uL (1.70-6.50) Absolute Lymphs (auto) 2.91 10^3/uL 10^3/uL (1.00-3.00) Absolute Monos (auto) 0.50 10^3/uL 10^3/uL (0.30-0.80) Absolute Eos (auto) 0.32 10^3/uL 10^3/uL (0.03-0.40) Absolute Basos (auto) 0.05 10^3/uL 10^3/uL (0.02-0.10) Absolute Nucleated RBC 0.00 10^3/uL 10^3/uL (0-0.01) Immature Gran % 2.0 % H % (0.0-1.1) Immature Gran # 0.12 10^3/uL H 10^3/uL (0.00-0.10) PT INR APTT Sodium Potassium Chloride Carbon Dioxide Anion Gap BUN Creatinine Estimated GFR Glucose Calcium Magnesium Troponin I NT-Pro-B Natriuret Pep Lipase Nasal Influenza A PCR Nasal Influenza B PCR RSV (PCR) Medications Given: Discontinued Medications Albuterol/Ipratropium (Duoneb) 6 ml IH EDNOW ONE Stop: 01/06/18 19:53 Last Admin: 01/06/18 20:27 Dose: 6 ml Sodium Chloride (Ns) 1,000 mls @ 0 mls/hr IV ONCE ONE PRN Reason: Wide Open Stop: 01/06/18 20:56 Last Admin: 01/06/18 20:55 Dose: 1,000 mls Methylprednisolone Sodium Succinate (Solu-Medrol) 125 mg IVP EDNOW ONE Stop: 01/06/18 19:54 Last Admin: 01/06/18 20:27 Dose: 125 mg Departure - Departure Disposition: Home, Routine, Self-Care Clinical Impression: COPD exacerbation Condition: Good Instructions: COPD (Chronic Obstructive Pulmonary Disease) (ED) Additional Instructions: 1. Prednisone as prescribed to completion. This medication has been provided to you here before leaving the hospital. He will need to take this once daily starting tomorrow 2. Levaquin as prescribed to completion. First dose was given here and the remainder of the medication was given to you here in the hospital. No need to take this once daily starting tomorrow 3. Contact primary care physician tomorrow morning for outpatient follow-up 4. Continue to use your previously prescribed albuterol as needed 5. ED precautions as discussed Referrals: Nichole Oneil PA [Primary Care Provider] - As per Instructions Prescriptions: levOFLOXACIN [Levaquin] 500 mg PO DAILY #6 tablet predniSONE [Deltasone] 60 mg PO DAILY #12 tablet
[2018-01-06 20:01] LABS: PLATELET COUNT 330 10^3/uL (150-400)
[2018-01-06 20:15] LABS: INR 0.91 (0.83-1.16); PROTIME(PATIENT) 12.5 SEC (12.0-15.0)
[2018-01-06] MEDS ORDERED: NS 1,000 ML IV ONE (20:55)
[2018-01-06 22:08] VITALS: BP 113/72
== END 2018-01-06 22:08 | disposition home or self-care (01) ==
LOC: EDUNIT#
DX: J44.1 Chronic obstructive pulmonary disease with (acute) exacerbation (principal); I10 Essential (primary) hypertension; F17.210 Nicotine dependence, cigarettes, uncomplicated
CPT/HCPCS: 96374; J2930; J7512

== ENCOUNTER 2018-01-26 00:02 | Emergency (ER) | payer MEDICAID ==
--- NOTE | 2018-01-26 00:13 | EDPHY ---
H & P Smoking Status: Current every day smoker Time Seen by Provider: 01/26/18 00:07 HPI/ROS: CHIEF COMPLAINT: "I drank again" HISTORY OF PRESENT ILLNESS: 53-year-old homeless male history of alcoholism [facility] however he is not allowed to go to the [facility]. He has no complaints of pain or discomfort. Does admit to alcohol use. Denies suicidal or homicidal ideations. Denies self -injury. Denies trauma or fall. REVIEW OF SYSTEMS: A ten point review of systems was performed and is negative with the exception of the items mentioned in the HPI PAST MEDICAL & SURGICAL HISTORY: Alcoholism SOCIAL HISTORY: Positive for alcohol use PHYSICAL EXAM (Prior to examination, patient consented to physical exam, hands were washed and my usual and customary physical exam procedures followed) 1) GENERAL: Alert and oriented. Appears to be in no acute distress. Answering questions appropriately 2) HEAD: Normocephalic, atraumatic 3) HEENT: Pupils equal, round, reactive to light bilaterally. Sclera anicteric. No raccoon eyes no Hagan sign. Nasopharynx, oropharynx, clear, no lesions. No rhinorrhea Ears bilaterally with normal tympanic membranes. No hemotympanum no fluid or blood external auditory canal 4) NECK: Full range of motion, no meningeal signs. 5) LUNGS: Clear auscultation bilaterally, no wheezes, no rhonchi, no retractions. 6) HEART: Regular rate and rhythm, no murmur, no heave, no gallop. 7) ABDOMEN: No guarding, no rebound, no focal tenderness, negative McBurney's, negative Raman's, negative Rovsing's, negative peritoneal sign, 8) MUSCULOSKELETAL: Moving all extremities, no focal areas of tenderness, no obvious trauma. No peripheral edema or discoloration. 9) BACK: No CVA tenderness, no midline vertebral tenderness, no fluctuance, no step-off, no obvious trauma, no visual or palpable abnormality. 10) SKIN: No rash, no petechiae. 11) Psychiatric: Patient is oriented X 3, there is no agitation. DIFFERENTIAL DIAGNOSIS: In no particular order including but not limited to alcohol abuse, polysubstance abuse, delirium tremens (Brandyn Castro) Constitutional: Initial Vital Signs Temperature (C) 36.1 C 01/26/18 00:05 Heart Rate 82 01/26/18 00:05 Respiratory Rate 18 01/26/18 00:05 Blood Pressure 97/67 L 01/26/18 00:05 O2 Sat (%) 98 01/26/18 00:05 O2 Delivery Mode Room Air Allergies/Adverse Reactions: Penicillins Allergy (Verified 01/26/18 00:11) Home Medications: Medication Instructions Recorded Albuterol [Proventil Inhaler HFA 1 - 2 puffs IH Q4H PRN MDD SOB 12/03/17 (*)] Benzonatate [Tessalon Pearles] 100 mg PO TID 12/03/17 Ipratropium/Albuterol [Combivent 1 puffs IH TID 12/03/17 Respimat Inhal [place](*)] Meloxicam 7.5 mg PO BID PRN 12/03/17 traMADol [Ultram 50 mg (*)] 50 - 100 mg PO TID PRN 12/03/17 guaiFENesin [Mucinex 600 MG (*)] 1,200 mg PO BID tab.er 12/05/17 Nicotine [Nicoderm Cq 21 mg (*)] 21 mg TD DAILY PRN 12/10/17 Doxycycline Hyclate [Vibramycin 100 mg PO BID #14 cap 12/18/17 100 MG (*)] levOFLOXACIN [Levaquin] 500 mg PO DAILY #6 tablet 01/06/18 predniSONE [Deltasone] 60 mg PO DAILY #12 tablet 01/06/18 MDM/Departure - [facility] ED Course/Re-evaluation: Patient is not allowed to go to the [facility]. Plan will be observation until he is clinically sober . 2:00 a.m.: Patient is sleeping care turned over to Dr. Rankin (Brandyn Castro) PHYSICIAN DOCUMENTATION: The patient was evaluated and managed by the Physician Fire Systems Inspector. My co- signature indicates that I have reviewed this chart and I agree with the findings and plan of care as documented. I am the secondary supervising physician. The patient is awake and alert. He was discharged home. He was observed walking with a steady gait. (Rupa Rankin) - Depart Disposition: Home, Routine, Self-Care Clinical Impression: Alcohol abuse Condition: Good Instructions: Abuse of Alcohol (ED) Referrals: [facility] [Outside] - As per Instructions
[2018-01-26 04:25] VITALS: BP 135/77
== END 2018-01-26 04:00 | disposition home or self-care (01) ==
LOC: EDUNIT#
DX: F10.129 Alcohol abuse with intoxication, unspecified (principal); F17.200 Nicotine dependence, unspecified, uncomplicated

== ENCOUNTER 2018-03-02 19:14 | Emergency (ER) | payer MEDICAID ==
[2018-03-02] MEDS ORDERED: ONDANSETRON DISINTEGRATING 4 MG TAB PO ONE (20:50)
[2018-03-02] MEDS ORDERED: ONDANSETRON DISINTEGRATING 4 MG TAB ONE (20:50)
--- NOTE | 2018-03-02 20:54 | EDPHY ---
H & P Smoking Status: Current every day smoker Time Seen by Provider: 03/02/18 20:42 HPI/ROS: CHIEF COMPLAINT: "I felt nauseous" HISTORY OF PRESENT ILLNESS: 53-year-old homeless male history of BPH, states that he was started on Flomax, took 1st dose this morning few minutes later developed abdominal discomfort and nausea with no vomiting. He rode the bus to the ER complaining of continued mild nausea as his solitary complaint. He ate dinner before coming to the ER consisting of lasagna which he tolerated well. Did not elicit pain after eating, did not elicit nausea after eating. Last drink of alcohol was 24 hr ago. No dizziness. No chest pain. No dyspnea. No abdominal pain. No back or flank pain. No urinary abnormality. PRIMARY CARE PROVIDER: [facility] ] REVIEW OF SYSTEMS: A ten point review of systems was performed and is negative with the exception of the items mentioned in the HPI PAST MEDICAL & SURGICAL HISTORY: COPD. Esophageal reflux. Alcohol use. SOCIAL HISTORY: Chronic tobacco abuse. History of alcoholism last drink of alcohol 24 hr ago. PHYSICAL EXAM (Prior to examination, patient consented to physical exam, hands were washed and my usual and customary physical exam procedures followed) 1) GENERAL: Well-developed, well-nourished, alert and oriented. Sleeping when I enter the room, appears comfortable, easily woken, smiling Appears to be in no acute distress. 2) HEAD: Normocephalic, atraumatic 3) HEENT: Pupils equal, round, reactive to light bilaterally. Sclera anicteric. [Nasopharynx, oropharynx, clear, no lesions. 4) NECK: Full range of motion, no meningeal signs. 5) LUNGS: Clear auscultation bilaterally, no wheezes, no rhonchi, no retractions. 6) HEART: Regular rate and rhythm, no murmur, no heave, no gallop. 7) ABDOMEN: No guarding, no rebound, no focal tenderness, negative McBurney's, negative Raman's, negative Rovsing's, negative peritoneal sign, unable to elicit any pain 8) MUSCULOSKELETAL: Moving all extremities, no focal areas of tenderness, no obvious trauma. No peripheral edema or discoloration. 9) BACK: No CVA tenderness, no midline vertebral tenderness, no fluctuance, no step-off, no obvious trauma, no visual or palpable abnormality. 10) SKIN: No rash, no petechiae. 11) Psychiatric: Patient is oriented X 3, there is no agitation. DIFFERENTIAL DIAGNOSIS: In no particular include but limited to esophageal reflux, medication adverse effect, alcohol withdrawal (Gloria,Brandyn Viveros) Constitutional: Initial Vital Signs Temperature (C) 37.0 C 03/02/18 19: Heart Rate 101 H 03/02/18 19:23 Respiratory Rate 18 03/02/18 19:23 Blood Pressure 146/92 H 03/02/18 19:23 O2 Sat (%) 95 03/02/18 19:23 O2 Delivery Mode Room Air Allergies/Adverse Reactions: Penicillins Allergy (Verified 01/26/18 00:11) Home Medications: Medication Instructions Recorded Albuterol [Proventil Inhaler HFA 1 - 2 puffs IH Q4H PRN MDD SOB 12/03/17 (*)] Benzonatate [Tessalon Pearles] 100 mg PO TID 12/03/17 Ipratropium/Albuterol [Combivent 1 puffs IH TID 12/03/17 Respimat Inhal [place](*)] Meloxicam 7.5 mg PO BID PRN 12/03/17 traMADol [Ultram 50 mg (*)] 50 - 100 mg PO TID PRN 12/03/17 guaiFENesin [Mucinex 600 MG (*)] 1,200 mg PO BID tab.er 12/05/17 Nicotine [Nicoderm Cq 21 mg (*)] 21 mg TD DAILY PRN 12/10/17 Doxycycline Hyclate [Vibramycin 100 mg PO BID #14 cap 12/18/17 100 MG (*)] levOFLOXACIN [Levaquin] 500 mg PO DAILY #6 tablet 01/06/18 predniSONE [Deltasone] 60 mg PO DAILY #12 tablet 01/06/18 Tamsulosin HCl 03/02/18 MDM/Departure - MDM Medications Given: Discontinued Medications Ondansetron HCl (Zofran Odt) 4 mg PO EDNOW ONE Stop: 03/02/18 20:51 Last Admin: 03/02/18 20:55 Dose: 4 mg ED Course/Re-evaluation: 8:53 p.m.: This patient appears well, appears comfortable, tolerating oral intake. He does request medication for mild nausea. I think that this less than likely represent cardiac or pulmonary etiology. Doubt acute surgical abdominal pathology. Incompletely clear whether the nausea and transient abdominal discomfort/cramping this morning was secondary to medication or possibly secondary to alcohol withdrawal. At this time I do not think that further intervention, diagnostic studies are indicated from the ER. Doubt delirium tremens. I think the patient can be discharged. He feels comfortable being discharged. Care of patient under supervision of secondary supervising physician Dr Michele Hull. ([facility]) I did not see this patient while he was in the emergency department. However his care was discussed with the PA while the patient was in the department. I agree with treatment plan and management (Michele Hull) - Depart Disposition: Home, Routine, Self-Care Clinical Impression: Nausea alone Condition: Good Instructions: Ondansetron (By mouth), Acute Nausea and Vomiting (ED) Additional Instructions: Return to the ER if you develop chest pain, shortness of breath, abdominal pain or any other symptoms that concern you. Referrals: Nichole Oneil PA [Primary Care Provider] - 2-3 days, call for appt.
[2018-03-02 20:59] VITALS: BP 140/89
== END 2018-03-02 20:58 | disposition home or self-care (01) ==
DX: R11.0 Nausea (principal); J44.9 Chronic obstructive pulmonary disease, unspecified; F17.200 Nicotine dependence, unspecified, uncomplicated

== ENCOUNTER 2018-03-24 20:16 | Emergency (ER) | payer MEDICAID ==
--- NOTE | 2018-03-24 20:25 | EDPHY ---
H & P Time Seen by Provider: 03/24/18 20:21 HPI/ROS: CHIEF COMPLAINT: Nauseated, bloody stool HISTORY OF PRESENT ILLNESS: Patient is a 53-year-old male who presents to the emergency department complaining of abdominal discomfort. He states his abdominal discomfort occurs after he eats meals. He has diffuse cramping. He also complains of nausea. No vomiting. No fever. Patient noticed some bright red blood in his stool today. No diarrhea. No dysuria or frequency. REVIEW OF SYSTEMS: My complete review of systems is negative except as mentioned in the HPI. Past Medical/Surgical History: Includes abdominal hernia, low back pain, chronic pain, COPD, GERD Social history: The patient drinks alcohol heavily daily. Patient is homeless. Smoking Status: Current every day smoker Physical Exam: Vitals noted GENERAL: No acute distress, alert. HEENT: Eyes normal to inspection, normal pharynx, no signs of dehydration. NECK: No thyromegaly, no lymphadenopathy, supple. RESPIRATORY: Clear to auscultation bilaterally, no rales, rhonchi or wheezing. CVS: Regular rate and rhythm, no rubs, murmurs, or gallops. ABDOMEN: Soft, mild epigastric tenderness to palpation with no rebound or guarding, nondistended, no organomegaly. BACK: Normal to inspection, no CVA tenderness. SKIN: Normal color, no rash, warm, dry. No pallor. EXTREMITIES: No pedal edema, no calf tenderness, no Homans sign or cords, no joint swelling. NEURO/PSYCH: Alert and oriented, normal mood and affect, normal motor sensory exam. Constitutional: Initial Vital Signs Temperature (C) 37.7 C 03/24/18 20:23 Heart Rate 82 03/24/18 20:23 Respiratory Rate 16 03/24/18 20:23 Blood Pressure 146/88 H 03/24/18 20:23 O2 Sat (%) 94 03/24/18 20:23 O2 Delivery Mode Room Air Allergies/Adverse Reactions: Penicillins Allergy (Verified 03/24/18 20:25) Home Medications: Medication Instructions Recorded Meloxicam 7.5 mg PO BID PRN 12/03/17 traMADol [Ultram 50 mg (*)] 50 - 100 mg PO TID PRN 12/03/17 Medical Decision Making ED Course/Re-evaluation: I met EMS on arrival in took report. In the emergency department I discussed possible etiologies with the patient. I answered all his questions. Laboratory studies were sent. I reviewed the patient's previous medical record. CBC and chemistry unremarkable. Coags are normal. I discussed the result with the patient. I answered all his questions. I recommended he take Pepcid daily for the next week. I recommended decreasing his alcohol intake. He is given follow-up with both primary care physician and Gastroenterology. He is given warnings prior to leaving. Will return with worsening symptoms. Differential Diagnosis: My differential includes but is not limited to external hemorrhoid, internal hemorrhoid, lower GI bleed, upper GI bleed, mass, malignancy, diverticulitis - Data Points Laboratory Results: Laboratory Results 03/24/18 20:20 03/24/18 20:20 03/24/18 03/24/18 03/24/18 20:20 20:20 20:20 WBC 4.72 10^3/uL 10^3/uL (3.80-9.50) RBC 5.01 10^6/uL 10^6/uL (4.40-6.38) Hgb 16.0 g/dL g/dL (13.7-17.5) Hct 47.1 % % (40.0-51.0) MCV 94.0 fL fL (81.5-99.8) MCH 31.9 pg pg (27.9-34.1) MCHC 34.0 g/dL g/dL (32.4-36.7) RDW 13.7 % % (11.5-15.2) Plt Count 312 10^3/uL 10^3/uL (150-400) MPV 10.3 fL fL (8.7-11.7) Neut % (Auto) 51.4 % % (39.3-74.2) Lymph % (Auto) 33.1 % % (15.0-45.0) [place] % (Auto) 10.2 % % (4.5-13.0) Eos % (Auto) 3.8 % % (0.6-7.6) Baso % (Auto) 1.3 % % (0.3-1.7) Nucleat RBC Rel Count 0.0 % % (0.0-0.2) Absolute Neuts (auto) 2.43 10^3/uL 10^3/uL (1.70-6.50) Absolute Lymphs (auto) 1.56 10^3/uL 10^3/uL (1.00-3.00) Absolute Monos (auto) 0.48 10^3/uL 10^3/uL (0.30-0.80) Absolute Eos (auto) 0.18 10^3/uL 10^3/uL (0.03-0.40) Absolute Basos (auto) 0.06 10^3/uL 10^3/uL (0.02-0.10) Absolute Nucleated RBC 0.00 10^3/uL 10^3/uL (0-0.01) Immature Gran % 0.2 % % (0.0-1.1) Immature Gran # 0.01 10^3/uL 10^3/uL (0.00-0.10) PT 13.6 SEC SEC (12.0-15.0) INR 1.02 (0.83-1.16) APTT 27.3 SEC SEC (23.0-38.0) Sodium 141 mEq/L mEq/L (135-145) Potassium 4.9 mEq/L mEq/L (3.3-5.0) Chloride 109 mEq/L mEq/L (97-110) Carbon Dioxide 24 mEq/l mEq/l (22-31) Anion Gap 8 mEq/L mEq/L (8-16) BUN 16 mg/dL mg/dL (7-23) Creatinine 1.2 mg/dL mg/dL (0.7-1.3) Estimated GFR > 60 Glucose 88 mg/dL mg/dL (70-100) Calcium 8.9 mg/dL mg/dL (8.5-10.4) Total Bilirubin 0.8 mg/dL mg/dL (0.1-1.4) Conjugated Bilirubin 0.4 mg/dL mg/dL (0.0-0.5) Unconjugated Bilirubin 0.4 mg/dL mg/dL (0.0-1.1) AST 30 IU/L IU/L (17-59) ALT 34 IU/L IU/L (21-72) Alkaline Phosphatase 55 IU/L IU/L (38-126) Total Protein 6.5 g/dL g/dL (6.3-8.2) Albumin 3.9 g/dL g/dL (3.5-5.0) Lipase 159 IU/L IU/L (23-300) Medications Given: Discontinued Medications Sodium Chloride (Ns) 1,000 mls @ 0 mls/hr IV ONCE ONE PRN Reason: Wide Open Stop: 03/24/18 21:31 Last Admin: 03/24/18 21:31 Dose: 1,000 mls Departure - Departure Disposition: Home, Routine, Self-Care Clinical Impression: Nausea Back pain Qualifiers: Back pain location: low back pain Chronicity: acute Back pain laterality: unspecified Sciatica presence: without sciatica Qualified Code(s): M54.5 - Low back pain Condition: Good Instructions: Acute Abdominal Pain (ED) Additional Instructions: Return with increasing abdominal pain, nausea, vomiting or fever. Referrals: Clive Saeed DO [Medical Doctor] - 5-7 days, if not improved Kiran Felix MD, FACG [Medical Doctor] - 5-7 days, if not improved
[2018-03-24 20:35] LABS: PLATELET COUNT 312 10^3/uL (150-400)
[2018-03-24 20:43] LABS: INR 1.02 (0.83-1.16)
[2018-03-24 20:52] LABS: PROTIME(PATIENT) 13.6 SEC (12.0-15.0)
[2018-03-24] MEDS ORDERED: NS 1,000 ML IV ONE (21:30)
[2018-03-24 22:25] VITALS: BP 143/88
== END 2018-03-24 22:24 | disposition home or self-care (01) ==
LOC: EDUNIT#
DX: R11.0 Nausea (principal); M54.5 Low back pain; F17.200 Nicotine dependence, unspecified, uncomplicated; J44.9 Chronic obstructive pulmonary disease, unspecified

== ENCOUNTER 2018-04-03 21:57 | Emergency (ER) | payer MEDICAID ==
--- NOTE | 2018-04-03 22:12 | EDPHY ---
H & P Stated Complaint: Problems eating, feels constipated Time Seen by Provider: 04/03/18 22:11 HPI/ROS: HPI CHIEF COMPLAINT: Constipation HISTORY OF PRESENT ILLNESS: This is a 53-year-old male, presents emergency room by EMS for abdominal pain. Patient is homeless he drinks alcohol daily drinks anywhere from 1-2 pt of liquor per day. He states for the past few days he has been having trouble using the bathroom and states that he feels constipated. He denies any melena car black tarry stool. He denies any vomiting. He states after he eats or drinks he gets abdominal pain. Mainly in his lower abdomen. Denies chest pain or shortness of breath. Denies hematemesis. States rather dull achy pain in his lower abdomen. No upper chest pain or upper abdominal pain. Past Medical History: Hernia, COPD, chronic low back pain, GERD, daily alcohol use. Past Surgical History: Denies recent surgery Social History: Denies drugs. Endorses alcohol and tobacco. Alcohol daily 2 pt of liquor. Homeless. Family History: Noncontributory ROS REVIEW OF SYSTEMS: A comprehensive 10 point review of systems is otherwise negative aside from elements mentioned in the history of present illness. Exam Constitutional nontoxic appearing, intoxicated, smells of alcohol triage nursing summary reviewed, vital signs reviewed, awake/alert. Eyes normal conjunctivae and sclera, EOMI, PERRLA. HENT normal inspection, atraumatic, moist mucus membranes, no epistaxis, neck supple/ no meningismus, no raccoon eyes. Respiratory clear to auscultation bilaterally, normal breath sounds, no respiratory distress, no wheezing. Cardiovascular rate normal, regular rhythm, no murmur, no edema, distal pulses normal. Gastrointestinal mild tender palpation lower abdomen left lower quadrant, no peritoneal signs, no rebound, no guarding, normal bowel sounds, no distension, no pulsatile mass. Genitourinary no CVA tenderness. Musculoskeletal no midline vertebral tenderness, full range of motion, no calf swelling, no tenderness of extremities, no meningismus, good pulses, neurovascularly intact. Skin pink, warm, & dry, no rash, skin atraumatic. Neurologic awake, alert and oriented x 3, AAOx3, moves all 4 extremities equally, motor intact, sensory intact, CN II-XII intact, normal cerebellar, normal vision, normal speech. Psychiatric normal mood/affect. Heme/Lymph/Immune no lymphadenopathy. Differential Diagnosis: Differential diagnosis includes but is not limited to and in no particular order: Alcohol intoxication,, alcohol-induced gastritis, alcohol-induced pancreatitis, esophagitis, cancer Bowel obstruction, appendicitis, gallbladder disease, diverticulitis, colitis, enteritis, perforated viscus, gastritis, GERD, esophagitis, urinary tract infection, pyelonephritis, kidney stones Medical Decision Making: Plan for this patient IV establishment blood draw, CT scan abdomen pelvis with IV contrast, check alcohol level, check abdominal labs , lactic acid. Re-evaluate. Re-evaluation: CT scan abdomen pelvis with IV contrast called to me by Dr. Jason Jeong, negative for acute inflammatory process visualized. No evidence of bowel obstruction. 2345: Patient's blood work reviewed unremarkable. Just very mild leukocytosis. However lactic less than 2, electrolytes appropriate. No evidence of lipase elevation. Patient's alcohol level is elevated 125. I recommend the patient that he refrain from drinking alcohol. Additionally will place him on Zantac as he may have GI upset/gastritis from altered alcohol use and anti-inflammatories. Return precautions discussed with him he understands return emergency room if develops worsening abdominal pain fever vomiting. He was able to p.o. Challenge well here in the emergency room. Source: Patient - Personal History Current Tetanus/Diphtheria Vaccine: Unsure Current Tetanus Diphtheria and Acellular Pertussis (TDAP): Unsure - Medical/Surgical History Hx Asthma: No Hx Chronic Respiratory Disease: Yes Hx Diabetes: No Hx Cardiac Disease: No Hx Renal Disease: No Hx Cirrhosis: No Hx Alcoholism: Yes Hx HIV/AIDS: No Hx Splenectomy or Spleen Trauma: No Other PMH: TB, bilateral hernias, reflux, ETOH ABUSE, chronic back pain, left lung inflated - Social History Smoking Status: Current every day smoker Constitutional: Initial Vital Signs Temperature (C) 36.5 C 04/03/18 21:59 Heart Rate 88 04/03/18 21:59 Respiratory Rate 16 04/03/18 21:59 Blood Pressure 116/79 04/03/18 21:59 O2 Sat (%) 95 04/03/18 21:59 O2 Delivery Mode Room Air Allergies/Adverse Reactions: Penicillins Allergy (Verified 03/24/18 20:25) Home Medications: Medication Instructions Recorded Meloxicam 7.5 mg PO BID PRN 12/03/17 traMADol [Ultram 50 mg (*)] 50 - 100 mg PO TID PRN 12/03/17 Ondansetron HCl [Zofran] 4 mg PO Q4-6PRN PRN #10 tablet 04/03/18 Ranitidine HCl [Zantac] 150 mg PO DAILY #14 tablet 04/03/18 Medical Decision Making - Data Points Laboratory Results: Laboratory Results 04/03/18 22:32 04/03/18 22:32 04/03/18 04/03/18 04/03/18 22:32 22:32 22:32 WBC 12.34 10^3/uL H 10^3/uL (3.80-9.50) RBC 4.86 10^6/uL 10^6/uL (4.40-6.38) Hgb 15.4 g/dL g/dL (13.7-17.5) Hct 46.6 % % (40.0-51.0) MCV 95.9 fL fL (81.5-99.8) MCH 31.7 pg pg (27.9-34.1) MCHC 33.0 g/dL g/dL (32.4-36.7) RDW 13.3 % % (11.5-15.2) Plt Count 317 10^3/uL 10^3/uL (150-400) MPV 10.2 fL fL (8.7-11.7) Neut % (Auto) 69.1 % % (39.3-74.2) Lymph % (Auto) 20.3 % % (15.0-45.0) [place] % (Auto) 7.3 % % (4.5-13.0) Eos % (Auto) 2.3 % % (0.6-7.6) Baso % (Auto) 0.7 % % (0.3-1.7) Nucleat RBC Rel Count 0.0 % % (0.0-0.2) Absolute Neuts (auto) 8.52 10^3/uL H 10^3/uL (1.70-6.50) Absolute Lymphs (auto) 2.51 10^3/uL 10^3/uL (1.00-3.00) Absolute Monos (auto) 0.90 10^3/uL H 10^3/uL (0.30-0.80) Absolute Eos (auto) 0.28 10^3/uL 10^3/uL (0.03-0.40) Absolute Basos (auto) 0.09 10^3/uL 10^3/uL (0.02-0.10) Absolute Nucleated RBC 0.00 10^3/uL 10^3/uL (0-0.01) Immature Gran % 0.3 % % (0.0-1.1) Immature Gran # 0.04 10^3/uL 10^3/uL (0.00-0.10) PT 13.6 SEC SEC (12.0-15.0) INR 1.02 (0.83-1.16) APTT 26.8 SEC SEC (23.0-38.0) VBG Lactic Acid Sodium 144 mEq/L mEq/L (135-145) Potassium 3.7 mEq/L mEq/L (3.3-5.0) Chloride 109 mEq/L mEq/L (97-110) Carbon Dioxide 24 mEq/l mEq/l (22-31) Anion Gap 11 mEq/L mEq/L (8-16) BUN 18 mg/dL mg/dL (7-23) Creatinine 0.7 mg/dL mg/dL (0.7-1.3) Estimated GFR > 60 Glucose 85 mg/dL mg/dL (70-100) Calcium 9.5 mg/dL mg/dL (8.5-10.4) Total Bilirubin 0.5 mg/dL mg/dL (0.1-1.4) Conjugated Bilirubin 0.3 mg/dL mg/dL (0.0-0.5) Unconjugated Bilirubin 0.2 mg/dL mg/dL (0.0-1.1) AST 29 IU/L IU/L (17-59) ALT 41 IU/L IU/L (21-72) Alkaline Phosphatase 60 IU/L IU/L (38-126) Total Protein 6.6 g/dL g/dL (6.3-8.2) Albumin 4.0 g/dL g/dL (3.5-5.0) Lipase 120 IU/L IU/L (23-300) Urine Color Urine Appearance Urine pH Ur Specific [place] Urine Protein Urine Ketones Urine Blood Urine Nitrate Urine Bilirubin Urine Urobilinogen Ur Leukocyte Esterase Urine Glucose Ethyl Alcohol 125 mg/dL H mg/dL (0-10) 04/03/18 04/03/18 22:32 22:08 WBC RBC Hgb Hct MCV MCH MCHC RDW Plt Count MPV Neut % (Auto) Lymph % (Auto) [place] % (Auto) Eos % (Auto) Baso % (Auto) Nucleat RBC Rel Count Absolute Neuts (auto) Absolute Lymphs (auto) Absolute Monos (auto) Absolute Eos (auto) Absolute Basos (auto) Absolute Nucleated RBC Immature Gran % Immature Gran # PT INR APTT VBG Lactic Acid 2.0 mmol/L mmol/L (0.7-2.1) Sodium Potassium Chloride Carbon Dioxide Anion Gap BUN Creatinine Estimated GFR Glucose Calcium Total Bilirubin Conjugated Bilirubin Unconjugated Bilirubin AST ALT Alkaline Phosphatase Total Protein Albumin Lipase Urine Color COLORLESS Urine Appearance CLEAR Urine pH 6.0 (5.0-7.5) Ur Specific [place] 1.004 (1.002-1.030) Urine Protein NEGATIVE (NEGATIVE) Urine Ketones NEGATIVE (NEGATIVE) Urine Blood NEGATIVE (NEGATIVE) Urine Nitrate NEGATIVE (NEGATIVE) Urine Bilirubin NEGATIVE (NEGATIVE) Urine Urobilinogen NEGATIVE EU EU (0.2-1.0) Ur Leukocyte Esterase NEGATIVE (NEGATIVE) Urine Glucose NEGATIVE (NEGATIVE) Ethyl Alcohol Medications Given: Discontinued Medications Sodium Chloride (Ns) 1,000 mls @ 0 mls/hr IV EDNOW ONE; Wide Open PRN Reason: Protocol Stop: 04/03/18 22:18 Last Admin: 04/03/18 22:27 Dose: 1,000 mls Famotidine/Sodium Chloride (Pepcid 20 Mg (Premix)) 50 mls @ 200 mls/hr IV EDNOW ONE Stop: 04/03/18 22:31 Last Admin: 04/03/18 22:27 Dose: 50 mls Departure - Departure Disposition: Home, Routine, Self-Care Clinical Impression: Abdominal pain Qualifiers: Abdominal location: generalized Qualified Code(s): R10.84 - Generalized abdominal pain Alcohol intoxication Qualifiers: Complication of substance-induced condition: uncomplicated Qualified Code(s): F10.920 - Alcohol use, unspecified with intoxication, uncomplicated Condition: Good Instructions: Constipation (ED), Acute Abdominal Pain (ED) Referrals: Nichole Oneil PA [Primary Care Provider] - As per Instructions Prescriptions: Ondansetron HCl [Zofran] 4 mg PO Q4-6PRN PRN #10 tablet PRN Reason: Nausea/Vomiting, Use 1st Ranitidine HCl [Zantac] 150 mg PO DAILY #14 tablet
[2018-04-03] MEDS ORDERED: FAMOTIDINE 20 MG/NACL 50 ML IV ONE (22:17)
[2018-04-03] MEDS ORDERED: NS 1,000 ML IV ONE (22:17)
[2018-04-03] MEDS ORDERED: IOPAMIDOL (ISOVUE-300) 100 ML BTL ONE (22:23)
[2018-04-03 22:54] LABS: INR 1.02 (0.83-1.16); PROTIME(PATIENT) 13.6 SEC (12.0-15.0)
[2018-04-03 23:15] LABS: PLATELET COUNT 317 10^3/uL (150-400)
[2018-04-04] MEDS ORDERED: CHLORDIAZEPOXIDE 25MG PREPK#6 BTL TAKEHOME ONE (00:03)
[2018-04-04 00:28] VITALS: BP 121/69
== END 2018-04-04 00:24 | disposition home or self-care (01) ==
LOC: EDUNIT#
DX: R10.84 Generalized abdominal pain (principal); F10.920 Alcohol use, unspecified with intoxication, uncomplicated; E86.9 Volume depletion, unspecified; J44.9 Chronic obstructive pulmonary disease, unspecified; F17.200 Nicotine dependence, unspecified, uncomplicated
CPT/HCPCS: 96374; G0480; Q9967

== ENCOUNTER 2018-07-21 02:00 | Emergency (ER) | payer OTHER ==
--- NOTE | 2018-07-21 02:23 | EDPHY ---
H & P Stated Complaint: drowsiness Time Seen by Provider: 07/21/18 02:02 HPI/ROS: HPI The patient presents with concern for potential trazodone overdose. The patient is brought in by ambulance. He takes trazodone nightly for sleep. He says about 3 hr ago he got mixed up with another 1 of his medications and took about 10 pills of it accidentally he believes. He is unsure how many mg he takes. He says he feels slightly nauseated which is mild and constant. Paramedics report he called 911 3 times tonight and was [facility]. REVIEW OF SYSTEMS 10 systems were reviewed and negative with the exception of the elements mentioned in the history of present illness. PMHx: Acid reflux Soc Hx: Homeless, alcohol abuse PHYSICAL General Appearance: Alert, no distress Eyes: Pupils equal and round no pallor or injection ENT, Mouth: Mucous membranes moist Respiratory: There are no retractions, lungs are clear to auscultation Cardiovascular: Regular rate and rhythm Gastrointestinal: Abdomen is soft and non-tender, no masses, bowel sounds normal Neurological: A&O, moves all extremities Skin: Warm and dry, no rashes Musculoskeletal: Neck is supple non tender Extremities: symmetrical, full range of motion Psychiatric: Patient is oriented X 3, there is no agitation Source: Patient Exam Limitations: No limitations - Medical/Surgical History Hx Asthma: No Hx Chronic Respiratory Disease: No Hx Diabetes: No Hx Cardiac Disease: No Hx Renal Disease: No Hx Cirrhosis: No Hx Alcoholism: Yes Hx HIV/AIDS: No Hx Splenectomy or Spleen Trauma: No Other PMH: TB, bilateral hernias, reflux, ETOH ABUSE, chronic back pain, left lung inflated - Social History Smoking Status: Current every day smoker Constitutional: Initial Vital Signs Temperature (C) 36.7 C 07/21/18 02:24 Heart Rate 75 07/21/18 02:24 Respiratory Rate 20 07/21/18 02:24 Blood Pressure 139/96 H 07/21/18 02:24 O2 Sat (%) 94 07/21/18 02:24 O2 Delivery Mode Room Air Allergies/Adverse Reactions: Penicillins Allergy (Verified 07/21/18 02:24) Home Medications: Medication Instructions Recorded Meloxicam 7.5 mg PO BID PRN 12/03/17 traMADol [Ultram 50 mg (*)] 50 - 100 mg PO TID PRN 12/03/17 Ondansetron HCl [Zofran] 4 mg PO Q4-6PRN PRN #10 tablet 04/03/18 Ranitidine HCl [Zantac] 150 mg PO DAILY #14 tablet 04/03/18 Medical Decision Making Differential Diagnosis: 53-year-old man presents with possible trazodone overdose, thinking that he may have taken extra trazodone pills about 3 hr ago after getting his pill bottles confused. He is feeling nauseous and drowsy currently. On exam, he has normal vital signs and is generally well-appearing though is disheveled and poorly groomed. I am not worried about serious untoward effects of trazodone. He can be discharged home. Departure - Departure Disposition: Home, Routine, Self-Care Clinical Impression: Accidental medication overdose Qualifiers: Encounter type: initial encounter Qualified Code(s): T50.901A - Poisoning by unspecified drugs, medicaments and biological substances, accidental ( unintentional), initial encounter Condition: Good Instructions: Adult Overdose (ED) Additional Instructions: [facility] days. Referrals: [facility],. [Clinic] - As per Instructions
[2018-07-21 03:20] VITALS: BP 118/79
== END 2018-07-21 03:44 | disposition home or self-care (01) ==
LOC: EDUNIT#
DX: T43.211A Poisoning by selective serotonin and norepinephrine reuptake inhibitors, accidental (unintentional), initial encounter (principal); Z59.0 Homelessness; F10.10 Alcohol abuse, uncomplicated; F17.200 Nicotine dependence, unspecified, uncomplicated

== ENCOUNTER 2018-12-05 11:08 | Inpatient (IN) | payer MEDICAID ==
--- NOTE | 2018-12-05 12:00 | EDPHY ---
H & P Stated Complaint: SOB, Dizzy Time Seen by Provider: 12/05/18 11:49 HPI/ROS: CHIEF COMPLAINT: Chest pain, dyspnea HISTORY OF PRESENT ILLNESS: 53-year-old homeless male history of alcohol abuse , called 911 for complaints of chest pain, dyspnea, near-syncope which started approximately 9:00 a.m. Today. He last drank alcohol 2 days ago. Yesterday evening he took a dose of anti be use. He has not had any alcohol since then. He denies wheezing. Denies cocaine use. Denies trauma or fall. Denies hallucination. Denies URI symptoms recently. Denies cough. PRIMARY CARE PROVIDER: REVIEW OF SYSTEMS: 10 systems reviewed and negative with the exception of the elements mentioned in the history of present illness PAST MEDICAL & SURGICAL HISTORY: COPD. No coronary artery disease history with no history of HI. SOCIAL HISTORY:Last drink of alcohol 2 days ago. Daily nicotine abuse. PHYSICAL EXAM (Prior to examination, patient consented to physical exam, hands were washed and my usual and customary physical exam procedures followed) 1) GENERAL: Well-developed, well-nourished, alert and oriented. Appears to be in no acute distress. Speaking full sentences no signs of respiratory distress 2) HEAD: Normocephalic, atraumatic 3) HEENT: Pupils equal, round, reactive to light bilaterally. Sclera anicteric. Nasopharynx, oropharynx, clear, no lesions. Moist Mucous membranes. Ears bilaterally with normal tympanic membranes. 4) NECK: Full range of motion, no meningeal signs. Negative carotid bruit 5) LUNGS: Clear auscultation bilaterally, no wheezes, no rhonchi, no retractions. Chest wall nontender. 6) HEART: Regular rate and rhythm, no murmur, no heave, no gallop. 7) ABDOMEN: No guarding, no rebound, no focal tenderness, negative McBurney's, negative Raman's, negative Rovsing's, negative peritoneal sign, 8) MUSCULOSKELETAL: Moving all extremities, no focal areas of tenderness, no obvious trauma. No peripheral edema or discoloration. Negative Homans no palpable cord 9) BACK: No CVA tenderness, no midline vertebral tenderness, no fluctuance, no step-off, no obvious trauma, no visual or palpable abnormality. 10) SKIN: No rash, no petechiae. 11) Psychiatric: Patient is oriented X 3, there is no agitation. DIFFERENTIAL DIAGNOSIS: In no particular order, including but not limited to myocardial ischemia, pulmonary embolus, chest wall pain, pleural inflammation and pulmonary infectious causes. - Personal History Current Tetanus Diphtheria and Acellular Pertussis (TDAP): Yes - Medical/Surgical History Hx Asthma: No Hx Chronic Respiratory Disease: Yes Hx Diabetes: No Hx Cardiac Disease: No Hx Renal Disease: No Hx Cirrhosis: No Hx Alcoholism: Yes Hx HIV/AIDS: No Hx Splenectomy or Spleen Trauma: No Other PMH: TB, bilateral hernias, reflux, ETOH ABUSE, chronic back pain, left lung inflated - Social History Smoking Status: Heavy smoker Constitutional: Initial Vital Signs Temperature (C) 37 C 12/05/18 11:16 Heart Rate 78 12/05/18 11:16 Respiratory Rate 18 12/05/18 11:16 Blood Pressure 119/83 H 12/05/18 11:16 O2 Sat (%) 95 12/05/18 11:16 O2 Delivery Mode Room Air Allergies/Adverse Reactions: Penicillins Allergy (Verified 07/21/18 02:24) Home Medications: Medication Instructions Recorded Meloxicam 7.5 mg PO BID PRN 12/03/17 ANTABUSE 12/05/18 Advair 100/50 (*) 12/05/18 FLUoxetine 12/05/18 Naltrexone 12/05/18 Tamsulosin HCl 12/05/18 Medical Decision Making - Diagnostics Imaging Results: Imaging Impressions Chest X-Ray 12/05/18 11:55 Impression: Stable chest, with features of granulomatous pleural/parenchymal scarring in the upper lungs bilaterally.. Images reviewed by myself ED Course/Re-evaluation: 11:59 a.m.: I reviewed the patient's old medical records. He does have a history of COPD with no wheezing at this time. Will check laboratory studies including troponin, D-dimer, chest x-ray and EKG and re-evaluate. Care of patient under supervision of secondary supervising physician Dr Leal with whom I discussed case. 1:49 p.m.: Repeat troponin is 0. Patient was given GI cocktail and notes no improvement in symptoms. He is asymptomatic at this time. The patient had a lengthy discussion about possible etiologies for symptoms.Patient has negative D -dimer which I think adequately excludes pulmonary embolus in this patient whom I have a moderate pretest suspicion. He is noted to have coronary artery disease on CT angiography of 2018. Patient does not feel comfortable being discharged home. Plan will be admission for chest pain evaluation 2 8:00 p.m.: Consultation with hospitalist, Callie, admit to Dr. Ty since - Data Points Laboratory Results: Laboratory Results 12/05/18 11:15 12/05/18 11:15 12/05/18 12/05/18 12/05/18 13:33 12:08 11:15 WBC RBC Hgb Hct MCV MCH MCHC RDW Plt Count MPV Neut % (Auto) Lymph % (Auto) [place] % (Auto) Eos % (Auto) Baso % (Auto) Nucleat RBC Rel Count Absolute Neuts (auto) Absolute Lymphs (auto) Absolute Monos (auto) Absolute Eos (auto) Absolute Basos (auto) Absolute Nucleated RBC Immature Gran % Immature Gran # D-Dimer Sodium 138 mEq/L mEq/L (135-145) Potassium 4.3 mEq/L mEq/L (3.5-5.2) Chloride 104 mEq/L mEq/L (97-110) Carbon Dioxide 24 mEq/l mEq/l (22-31) Anion Gap 10 mEq/L mEq/L (6-14) BUN 24 mg/dL H mg/dL (7-23) Creatinine 0.8 mg/dL mg/dL (0.7-1.3) Estimated GFR > 60 Glucose 114 mg/dL H mg/dL (70-100) Calcium 9.6 mg/dL mg/dL (8.5-10.4) Total Bilirubin 0.7 mg/dL mg/dL (0.1-1.4) Conjugated Bilirubin 0.6 mg/dL H mg/dL (0.0-0.5) Unconjugated Bilirubin 0.1 mg/dL mg/dL (0.0-1.1) AST 26 IU/L IU/L (17-59) ALT 31 IU/L IU/L (21-72) Alkaline Phosphatase 66 IU/L IU/L (38-126) POC Troponin I 0.00 ng/mL ng/mL 0.00 ng/mL ng/mL (0.00-0.08) (0.00-0.08) Total Protein 7.4 g/dL g/dL (6.3-8.2) Albumin 4.5 g/dL g/dL (3.5-5.0) Lipase 101 IU/L IU/L (23-300) 12/05/18 12/05/18 11:15 11:15 WBC 8.13 10^3/uL 10^3/uL (3.80-9.50) RBC 4.84 10^6/uL 10^6/uL (4.40-6.38) Hgb 15.3 g/dL g/dL (13.7-17.5) Hct 46.2 % % (40.0-51.0) MCV 95.5 fL fL (81.5-99.8) MCH 31.6 pg pg (27.9-34.1) MCHC 33.1 g/dL g/dL (32.4-36.7) RDW 12.9 % % (11.5-15.2) Plt Count 285 10^3/uL 10^3/uL (150-400) MPV 10.9 fL fL (8.7-11.7) Neut % (Auto) 75.4 % H % (39.3-74.2) Lymph % (Auto) 15.7 % % (15.0-45.0) [place] % (Auto) 7.0 % % (4.5-13.0) Eos % (Auto) 0.7 % % (0.6-7.6) Baso % (Auto) 0.7 % % (0.3-1.7) Nucleat RBC Rel Count 0.0 % % (0.0-0.2) Absolute Neuts (auto) 6.12 10^3/uL 10^3/uL (1.70-6.50) Absolute Lymphs (auto) 1.28 10^3/uL 10^3/uL (1.00-3.00) Absolute Monos (auto) 0.57 10^3/uL 10^3/uL (0.30-0.80) Absolute Eos (auto) 0.06 10^3/uL 10^3/uL (0.03-0.40) Absolute Basos (auto) 0.06 10^3/uL 10^3/uL (0.02-0.10) Absolute Nucleated RBC 0.00 10^3/uL 10^3/uL (0-0.01) Immature Gran % 0.5 % % (0.0-1.1) Immature Gran # 0.04 10^3/uL 10^3/uL (0.00-0.10) D-Dimer 0.28 ug/mLFEU ug/mLFEU (0.00-0.50) Sodium Potassium Chloride Carbon Dioxide Anion Gap BUN Creatinine Estimated GFR Glucose Calcium Total Bilirubin Conjugated Bilirubin Unconjugated Bilirubin AST ALT Alkaline Phosphatase POC Troponin I Total Protein Albumin Lipase Medications Given: Discontinued Medications Al Hydroxide/Mg Hydroxide (Maalox Susp) 30 ml PO ONCE ONE Stop: 12/05/18 12:15 Last Admin: 12/05/18 12:26 Dose: 30 ml Hyoscyamine Sulfate (Levsin, Hyomax-Sl) 0.25 mg PO ONCE ONE Stop: 12/05/18 12:15 Last Admin: 12/05/18 12:27 Dose: 0.25 mg Lidocaine (Lidocaine 2% Viscous) 15 ml PO ONCE ONE Stop: 12/05/18 12:15 Last Admin: 12/05/18 12:26 Dose: 15 ml Ondansetron HCl (Zofran) 4 mg IVP EDNOW ONE Stop: 12/05/18 12:22 Last Admin: 12/05/18 12:26 Dose: 4 mg Point of Care Test Results: Chemistry 12/05/18 12/05/18 13:33 12:08 POC Troponin I 0.00 ng/mL ng/mL 0.00 ng/mL ng/mL (0.00-0.08) (0.00-0.08) Departure - Departure Disposition: Home, Routine, Self-Care Clinical Impression: Dyspnea Qualifiers: Dyspnea type: unspecified Qualified Code(s): R06.00 - Dyspnea, unspecified Chest pain Qualifiers: Chest pain type: unspecified Qualified Code(s): R07.9 - Chest pain, unspecified Condition: Good Instructions: Dyspnea (ED) Referrals: Nichole Oneil PA [Primary Care Provider] - 1-2 days without fail
[2018-12-05 12:12] LABS: PLATELET COUNT 285 10^3/uL (150-400)
[2018-12-05] MEDS ORDERED: LIDOCAINE 2% VISCOUS 15 ML UDCUP PO ONE (12:14)
[2018-12-05] MEDS ORDERED: MAG HYDROX/AL HYDROX/SIMETH 30 ML UDCUP PO ONE (12:14)
[2018-12-05] MEDS ORDERED: HYOSCYAMINE SULFATE 0.125 MG TAB PO ONE (12:14)
[2018-12-05] MEDS ORDERED: ONDANSETRON 4 MG/2 ML VIAL IVP ONE (12:21)
[2018-12-05] MEDS ORDERED: ONDANSETRON 4 MG/2 ML VIAL IVP PRN (14:57)
--- NOTE | 2018-12-05 14:57 | CPEKG ---
Test Reason : OPEN Blood Pressure : / mmHG Vent. Rate : 079 BPM Atrial Rate : 082 BPM P-R Int : 177 ms QRS Dur : 091 ms QT Int : 383 ms P-R-T Axes : 090 079 079 degrees QTc Int : 440 ms Sinus rhythm Anteroseptal infarct, age indeterminate Confirmed by Liana Leal ([id number]) on 12/05/2018 2:56:16 PM Referred By: PHYSICIAN ED Confirmed By:Liana Leal
[2018-12-05] MEDS ORDERED: LORazepam 1 MG TAB PO PRN (15:00)
[2018-12-05] MEDS ORDERED: FLUMAZENIL 0.5 MG/5 ML MDV IVP PRN (15:00)
--- NOTE | 2018-12-05 15:12 | PDGENHP ---
<Cass Last - Last Filed: 12/05/18 15:59> History and Physical - Chief Complaint Chest pain - History of Present Illness HPI: This is a homeless 53 y/o male with history of COPD, etoh and nicotine abuse, TB presenting to the ED w/ c/o chest pressure, lightheadedness and nausea. His last alcohol drink was 2 days ago, he was started on Naltrexone which he took yesterday and today. Reports after he took his AM medications, he felt nauseous, lightheaded, and non-radiating epigastric chest pressure with an intensity 7-8/10. He felt like he needs to vomit but cannot produce any vomit. He went to [facility] to get something to eat and drink but doing so worsened his symptoms and called 911. He received a GI cocktail while in ED which he reports lessened the chest pressure intensity to 4/10. He does not have any cardiac hx however it should be noted a chest CTA in November 2017 showed evidence of atherosclerotic disease in the coronary arteries. He is being admitted for further work-up and monitoring. Past Medical History 1. Etoh abuse (drinks approximately 2 pints/day of whiskey or vodka) 2. Nicotine abuse (smokes approximately 1.5 packs of cigarettes/day) 3. COPD 4. Tuberculosis (per pt, has relasped 3x, last time while in [place], [place] which was ~5 years ago) 5. Bilateral hernias 6. Reflux 7. Chronic back pain Past Surgical History 1. Hernia repair as an Social 1. Homeless, resides at a nursing home 2. Heavy drinker and smoker as noted above. Smokes cannabis, denies any other illicit drugs. History Information - Allergies/Home Medication List Allergies/Adverse Reactions: Penicillins Allergy (Verified 07/21/18 02:24) Home Medications: Meloxicam 7.5 mg PO BID PRN 12/03/17 [Last Taken 12/05/18] Acetaminophen [Tylenol ES 500 mg (*)] 500 - 1,000 mg PO Q6 PRN 12/05/18 [Last Taken 12/05/18] FLUoxetine [Prozac 20 MG (*)] 20 mg PO DAILY 12/05/18 [Last Taken 12/05/18] Fluticasone/Salmeter 250/50Mcg [Advair 250/50 (*)] 1 puffs IH BID 12/05/18 [ Last Taken Unknown] Ipratropium/Albuterol [Combivent Respimat Inhal [place](*)] 1 inh IH QID 12/05/18 [Last Taken 12/05/18] Naltrexone HCl 50 mg PO DAILY 12/05/18 [Last Taken 12/05/18] Tamsulosin HCl [Flomax 0.4 MG (*)] 0.4 mg PO DAILY 12/05/18 [Last Taken 12/05/18 ] I have personally reviewed and updated: family history, medical history, social history, surgical history Past Medical History: See HPI list - Surgical History Additional surgical history: See HPI list - Social History Smoking Status: Heavy smoker Tobacco Use: Cigarettes, Greater than 1 pack/day Alcohol Use: Heavy Drug Use: Marijuana Review of Systems Review of Systems: ROS: 10pt was reviewed & negative except for what was stated in HPI & below Physical Exam Physical Exam: Lab data and imaging were reviewed. Case discussed with admitting physician, Dr. Galen Ross. D-Dimer: 0.28 Troponin: 0.00 x 2 BUN/Cr: 24/0.8 CXR: stable chest, no infiltrate, pleural effusion, pneumothorax. W/ features of granulomatous pleural/parenchymal scarring in the upper lungs bilaterally however this is unchanged from prior imaging in December 2017. EKG: SR, normal axis Temp Pulse Resp BP Pulse Ox 37 C 59 L 16 126/79 H 95 12/05/18 11:16 12/05/18 14:30 12/05/18 14:30 12/05/18 14:30 12/05/18 14:30 Constitutional: no apparent distress, appears nourished, not in pain Eyes: PERRL, anicteric sclera, EOMI Ears, Nose, Mouth, Throat: hearing normal, ears appear normal, no oral mucosal ulcers, dry mucous membranes Cardiovascular: regular rate and rhythym, no murmur, rub, or gallop, No edema Peripheral Pulses: 2+: dorsalis-pedis (R) (Radial 2+), dorsalis-pedis (L) ( Radial 2+) Respiratory: reduced air movement (Throughout lung ring) Gastrointestinal: normoactive bowel sounds, no palpable masses, tenderness ( More so to LUQ/LLQ) Genitourinary: no bladder fullness, no bladder tenderness Skin: warm, normal color, no rashes or abrasions, no fluctuance, no induration, No mottled Musculoskeletal: full muscle strength, no muscle tenderness, normal joint ROM, no joint effusions Neurologic: AAOx3, sensation intact bilaterally, CN II-XII Intact Psychiatric: interacting appropriately, not anxious, not encephalopathic, thought process linear Lymph, Heme, Immunologic: no cervical LAD, no supraclavicular LAD Lab Data & Imaging Review 12/05/18 11:15 12/05/18 11:15 WBC 8.13 10^3/uL (3.80-9.50) 12/05/18 11:15 RBC 4.84 10^6/uL (4.40-6.38) 12/05/18 11:15 Hgb 15.3 g/dL (13.7-17.5) 12/05/18 11:15 Hct 46.2 % (40.0-51.0) 12/05/18 11:15 MCV 95.5 fL (81.5-99.8) 12/05/18 11:15 MCH 31.6 pg (27.9-34.1) 12/05/18 11:15 MCHC 33.1 g/dL (32.4-36.7) 12/05/18 11:15 RDW 12.9 % (11.5-15.2) 12/05/18 11:15 Plt Count 285 10^3/uL (150-400) 12/05/18 11:15 MPV 10.9 fL (8.7-11.7) 12/05/18 11:15 Neut % (Auto) 75.4 % (39.3-74.2) H 12/05/18 11:15 Lymph % (Auto) 15.7 % (15.0-45.0) 12/05/18 11:15 [place] % (Auto) 7.0 % (4.5-13.0) 12/05/18 11:15 Eos % (Auto) 0.7 % (0.6-7.6) 12/05/18 11:15 Baso % (Auto) 0.7 % (0.3-1.7) 12/05/18 11:15 Nucleat RBC Rel Count 0.0 % (0.0-0.2) 12/05/18 11:15 Absolute Neuts (auto) 6.12 10^3/uL (1.70-6.50) 12/05/18 11:15 Absolute Lymphs (auto) 1.28 10^3/uL (1.00-3.00) 12/05/18 11:15 Absolute Monos (auto) 0.57 10^3/uL (0.30-0.80) 12/05/18 11:15 Absolute Eos (auto) 0.06 10^3/uL (0.03-0.40) 12/05/18 11:15 Absolute Basos (auto) 0.06 10^3/uL (0.02-0.10) 12/05/18 11:15 Absolute Nucleated RBC 0.00 10^3/uL (0-0.01) 12/05/18 11:15 Immature Gran % 0.5 % (0.0-1.1) 12/05/18 11:15 Immature Gran # 0.04 10^3/uL (0.00-0.10) 12/05/18 11:15 D-Dimer 0.28 ug/mLFEU (0.00-0.50) 12/05/18 11:15 Sodium 138 mEq/L (135-145) 12/05/18 11:15 Potassium 4.3 mEq/L (3.5-5.2) 12/05/18 11:15 Chloride 104 mEq/L (97-110) 12/05/18 11:15 Carbon Dioxide 24 mEq/l (22-31) 12/05/18 11:15 Anion Gap 10 mEq/L (6-14) 12/05/18 11:15 BUN 24 mg/dL (7-23) H 12/05/18 11:15 Creatinine 0.8 mg/dL (0.7-1.3) 12/05/18 11:15 Estimated GFR > 60 12/05/18 11:15 Glucose 114 mg/dL (70-100) H 12/05/18 11:15 Calcium 9.6 mg/dL (8.5-10.4) 12/05/18 11:15 Total Bilirubin 0.7 mg/dL (0.1-1.4) 12/05/18 11:15 Conjugated Bilirubin 0.6 mg/dL (0.0-0.5) H 12/05/18 11:15 Unconjugated Bilirubin 0.1 mg/dL (0.0-1.1) 12/05/18 11:15 AST 26 IU/L (17-59) 12/05/18 11:15 ALT 31 IU/L (21-72) 12/05/18 11:15 Alkaline Phosphatase 66 IU/L (38-126) 12/05/18 11:15 POC Troponin I 0.00 ng/mL (0.00-0.08) 12/05/18 13:33 Total Protein 7.4 g/dL (6.3-8.2) 12/05/18 11:15 Albumin 4.5 g/dL (3.5-5.0) 12/05/18 11:15 Lipase 101 IU/L (23-300) 12/05/18 11:15 Assessment & Plan Plan: This is a 53 y/o homeless w/ etoh and nicotine abuse, COPD, hx of TB, and reflux presents with symptoms of non-radiating epigastric pressure, mild nausea , and shortness of breath. Initial imaging and labwork were unremarkable. Differential diagnoses are the following but not limited to: ACS, HI, angina, acid reflux, URI. #Chest pain/epigastric pain: Heart score 3 (slightly suspicious, age, risk factors). 2 troponins negative 0.00. EKG unremarkable. Pain improved with GI cocktail received in ED. Denies SOB currently. -Cycle troponin tonight and one in AM -Repeat EKG later tonight, and PRN should status change -Cont tele monitoring -Lipid panel in AM #Etoh/nicotine abuse: Pt reports his last drink was 2 days ago. Took Naltrexone yesterday and today. -CIWA scale -Thiamine bolus + PO -Ativan PRN -Continue Naltrexone -Educated pt on etoh and nicotine cessation #Cough: this is chronic for him but he reports it worsens in colder climate. This is complicated with the fact he smokes daily and heavily. No changes with CXR from prior images. Hx of TB. Per pt, relapsed 3x last time approx. 5 yrs ago. s/p abx treatment. Admission in 2015 and 2017, AFB smear was completed and negative. -Respiratory pathogen PCR pending -On inhalers and may continue #GERD: received GI cocktail while in ED which improved his status. Reports in AM, eating and drinking made his symptoms worse. -Maalox PRN -Initiated Protonix PO Diet: Regular Code: Full VTE ppx: Lovenox subq Dispo: Admit to obs <Galen Ross - Last Filed: 12/05/18 17:18> History and Physical - History of Present Illness Review of Systems Review of Systems: Physical Exam Physical Exam: Temp Pulse Resp BP Pulse Ox 37 C 64 14 122/78 H 94 12/05/18 11:16 12/05/18 17:04 12/05/18 17:04 12/05/18 16:00 12/05/18 17:04 Lab Data & Imaging Review 12/05/18 11:15 12/05/18 11:15 WBC 8.13 10^3/uL (3.80-9.50) 12/05/18 11:15 RBC 4.84 10^6/uL (4.40-6.38) 12/05/18 11:15 Hgb 15.3 g/dL (13.7-17.5) 12/05/18 11:15 Hct 46.2 % (40.0-51.0) 12/05/18 11:15 MCV 95.5 fL (81.5-99.8) 12/05/18 11:15 MCH 31.6 pg (27.9-34.1) 12/05/18 11:15 MCHC 33.1 g/dL (32.4-36.7) 12/05/18 11:15 RDW 12.9 % (11.5-15.2) 12/05/18 11:15 Plt Count 285 10^3/uL (150-400) 12/05/18 11:15 MPV 10.9 fL (8.7-11.7) 12/05/18 11:15 Neut % (Auto) 75.4 % (39.3-74.2) H 12/05/18 11:15 Lymph % (Auto) 15.7 % (15.0-45.0) 12/05/18 11:15 [place] % (Auto) 7.0 % (4.5-13.0) 12/05/18 11:15 Eos % (Auto) 0.7 % (0.6-7.6) 12/05/18 11:15 Baso % (Auto) 0.7 % (0.3-1.7) 12/05/18 11:15 Nucleat RBC Rel Count 0.0 % (0.0-0.2) 12/05/18 11:15 Absolute Neuts (auto) 6.12 10^3/uL (1.70-6.50) 12/05/18 11:15 Absolute Lymphs (auto) 1.28 10^3/uL (1.00-3.00) 12/05/18 11:15 Absolute Monos (auto) 0.57 10^3/uL (0.30-0.80) 12/05/18 11:15 Absolute Eos (auto) 0.06 10^3/uL (0.03-0.40) 12/05/18 11:15 Absolute Basos (auto) 0.06 10^3/uL (0.02-0.10) 12/05/18 11:15 Absolute Nucleated RBC 0.00 10^3/uL (0-0.01) 12/05/18 11:15 Immature Gran % 0.5 % (0.0-1.1) 12/05/18 11:15 Immature Gran # 0.04 10^3/uL (0.00-0.10) 12/05/18 11:15 D-Dimer 0.28 ug/mLFEU (0.00-0.50) 12/05/18 11:15 Sodium 138 mEq/L (135-145) 12/05/18 11:15 Potassium 4.3 mEq/L (3.5-5.2) 12/05/18 11:15 Chloride 104 mEq/L (97-110) 12/05/18 11:15 Carbon Dioxide 24 mEq/l (22-31) 12/05/18 11:15 Anion Gap 10 mEq/L (6-14) 12/05/18 11:15 BUN 24 mg/dL (7-23) H 12/05/18 11:15 Creatinine 0.8 mg/dL (0.7-1.3) 12/05/18 11:15 Estimated GFR > 60 12/05/18 11:15 Glucose 114 mg/dL (70-100) H 12/05/18 11:15 Calcium 9.6 mg/dL (8.5-10.4) 12/05/18 11:15 Total Bilirubin 0.7 mg/dL (0.1-1.4) 12/05/18 11:15 Conjugated Bilirubin 0.6 mg/dL (0.0-0.5) H 12/05/18 11:15 Unconjugated Bilirubin 0.1 mg/dL (0.0-1.1) 12/05/18 11:15 AST 26 IU/L (17-59) 12/05/18 11:15 ALT 31 IU/L (21-72) 12/05/18 11:15 Alkaline Phosphatase 66 IU/L (38-126) 12/05/18 11:15 POC Troponin I 0.00 ng/mL (0.00-0.08) 12/05/18 13:33 Total Protein 7.4 g/dL (6.3-8.2) 12/05/18 11:15 Albumin 4.5 g/dL (3.5-5.0) 12/05/18 11:15 Lipase 101 IU/L (23-300) 12/05/18 11:15 Assessment & Plan Assessment: Dyspnea (Acute) Chest pain (Acute) Plan: Patient seen and evaluated independently and care plan reviewed with ESTER Last. Agree with her plan as outlined above. Please see separate documentation for further details.
[2018-12-05] MEDS ORDERED: IPRATROPIUM/ALBUTEROL 4GM MDI IH SCH (16:00)
[2018-12-05] MEDS ORDERED: NS 1,000 ML IV SCH (16:15)
[2018-12-05] MEDS: PANTOPRAZOLE SODIUM 40 MG TAB PO SCH (16:19)
--- NOTE | 2018-12-05 17:42 | HOSPPROG ---
Hospitalist Progress Note Assessment/Plan: 53 yo M with PMH of etoh abuse as well as prior TB and COPD presenting with chest pain # chest pain: patient describing what sounds more like pulmonary complaints with chest tightness exacerbated by the cold, does have some wheezing on exam and suspect that this is more likely related to acute copd exacerbation as next. Will monitor overnight on tele, serial ecg and trops. Will hold off on any ischemic testing at this time with a heart score of 2 (for age and risk factors) pending initial evaluation results. # copd with acute exacerbation: patient with wheezing on exam and notes that he has had chest tightness in the cold as above, will continue nebs overnight, will hold off on steroids for now as this does seem to be minor exacerbation without associated hypoxa, resp pcr negative, cxr without pna # hx of pulmonary TB: patient reports TB x 3 in the past, does have e/o old granulomatous disease on cxr, no complaints of night sweats/weight loss/ hemoptysis or chronic cough to suggest recurrent disease, per ID notes he has been appropriately treated previously in the past # alcohol use disorder and withdrawal: patient had been working to get off of alcohol for some time, currently being treated with naltrexone and states his last drink was 2 days ago, no s/s of severe withdrawal currently, will monitor # chronic pain: continue tramadol and meloxicam # observation status, patient homeless but stays at the senior care in the winter Patient new to my care. Old records reviewed and summarized as above. Care plan reviewed with ER doctor and ESTER Last, please see her separate H&P for further details. Objective: Vital Signs Temp Pulse Resp BP Pulse Ox 37 C 64 14 122/78 H 94 12/05/18 11:16 12/05/18 17:04 12/05/18 17:04 12/05/18 16:00 12/05/18 17:04 12/04/18 12/05/18 12/06/18 05:59 05:59 05:59 Intake Total 20 Balance 20 ICD10 Worksheet Patient Problems: Problems Problem Status Onset Back pain Acute Chronic obstructive pulmonary disease with acute exacerbation Acute Hypoxia Acute Hospital-acquired pneumonia Acute Dyspnea Acute Chest pain Acute
[2018-12-05] MEDS ORDERED: IPRATROPIUM/ALBUTEROL 3 ML DEYVIAL IH PRN (18:03)
[2018-12-05] MEDS: ACETAMINOPHEN 325 MG TAB PO PRN (18:04)
[2018-12-05] MEDS: LORazepam 2 MG/ML INJ IVP PRN ×2 (18:05→22:36)
[2018-12-05] MEDS ORDERED: ALBUTEROL 3 ML DEYVIAL IH PRN (18:08)
[2018-12-05] MEDS: Meloxicam [Meloxicam] 7.5 MG PO PRN (19:11)
[2018-12-05] MEDS ORDERED: IPRATROPIUM/ALBUTEROL 3 ML DEYVIAL ONE (21:53)
[2018-12-05] MEDS: IPRATROPIUM/ALBUTEROL 3 ML DEYVIAL IH SCH (21:57)
[2018-12-05] MEDS: FLUTICASONE/SALMETER 250/50MCG DISKUS IH SCH (22:53)
[2018-12-06] MEDS: LORazepam 2 MG/ML INJ IVP PRN ×3 (03:28→17:49)
[2018-12-06] MEDS: ACETAMINOPHEN 325 MG TAB PO PRN ×4 (03:29→22:23)
[2018-12-06] MEDS: IPRATROPIUM/ALBUTEROL 3 ML DEYVIAL IH SCH ×4 (04:37→22:19)
[2018-12-06 04:43] LABS: PLATELET COUNT 241 10^3/uL (150-400)
[2018-12-06] MEDS ORDERED: NALTREXONE HCL 50 MG TAB PO SCH (09:00)
[2018-12-06] MEDS: PANTOPRAZOLE SODIUM 40 MG TAB PO SCH (09:24)
[2018-12-06] MEDS: TAMSULOSIN HCL 0.4 MG CAP PO SCH (09:24)
[2018-12-06] MEDS: FLUoxetine 20 MG CAP PO SCH (09:24)
[2018-12-06] MEDS: ONDANSETRON DISINTEGRATING 4 MG TAB PO PRN ×2 (09:24→17:49)
[2018-12-06] MEDS: Meloxicam [Meloxicam] 7.5 MG PO PRN ×2 (09:27→22:23)
[2018-12-06] MEDS: THIAMINE HCL 500 MG in NS 100 ML IV SCH (09:28)
[2018-12-06] MEDS: ENOXAPARIN 40 MG/0.4 ML SYR SC SCH (09:28)
[2018-12-06] MEDS: FLUTICASONE/SALMETER 250/50MCG DISKUS IH SCH ×2 (10:15→22:21)
--- NOTE | 2018-12-06 15:10 | HOSPPROG ---
Hospitalist Progress Note Assessment/Plan: This is a 53 y/o homeless w/ etoh and nicotine abuse, COPD, hx of TB, and reflux presents with symptoms of non-radiating epigastric pressure, mild nausea , and shortness of breath. #Chest pain/epigastric pain: Heart score 3 (slightly suspicious, age, risk factors). 2 troponins negative 0.00. EKG unremarkable. Pain improved with GI cocktail received in ED. Denies SOB currently. symptoms of dizziness, NV, gi discomfort are fairly typical of naltrexone and likely his symptoms are due to abrupty starting naltrexone abruptly while still drinking. -resolved currently -ECG, troponins negative. -stop naltrexone. -can follow up as outpatient for further eval if persists or recurs. #Etoh abuse- Drinks 1-2 pints of voda or whiskey daily, last drink the day before admission. He was started on naltrexone the day after stopping drinking, which in researching this medication is typically contraindicated. I discussed with pharmacy and through our discussion it appears patients are supposed to be through withdrawal prior to starting naltrexone. -CIWA scale -Thiamine bolus + PO -Ativan PRN -Stop naltrexone for now. -Educated pt on etoh and nicotine cessation #Cough: this is chronic for him but he reports it worsens in colder climate. This is complicated with the fact he smokes daily and heavily. No changes with CXR from prior images. Hx of TB. Per pt, relapsed 3x last time approx. 5 yrs ago. s/p abx treatment. Admission in 2015 and 2017, AFB smear was completed and negative. -respiratory panel negative -cough improved this morning. -PRN tessalon #GERD: received GI cocktail while in ED which improved his status. Reports in AM, eating and drinking made his symptoms worse. -Maalox PRN -Initiated Protonix PO Diet: Regular Code: Full VTE ppx: Lovenox subq Dispo: Admit to obs Subjective: still having some gi discomfort, mild dizziness. no chest pain, Objective: Vital Signs Temp Pulse Resp BP Pulse Ox 36.6 C 93 14 123/62 H 92 12/06/18 11:28 12/06/18 11:28 12/06/18 11:28 12/06/18 11:28 12/06/18 11:28 Microbiology 12/05/18 16:16 Respiratory Panel (PCR) - Final Nasal, Sinus - Anaerobic Tube/Swab No Organism Detected By Pcr Laboratory Results 12/06/18 03:38 12/06/18 03:38 12/05/18 12/06/18 12/07/18 05:59 05:59 05:59 Intake Total 2420 Balance 2420 - Physical Exam Constitutional: no apparent distress, appears nourished, not in pain Eyes: PERRL, anicteric sclera, EOMI Ears, Nose, Mouth, Throat: moist mucous membranes, hearing normal, ears appear normal, no oral mucosal ulcers Cardiovascular: regular rate and rhythym, no murmur, rub, or gallop Respiratory: no respiratory distress, no rales or rhonchi, clear to auscultation Gastrointestinal: normoactive bowel sounds, soft, non-tender abdomen, no palpable masses Genitourinary: no bladder fullness, no bladder tenderness, no renal bruits Skin: no rashes or abrasions, no fluctuance, no induration Musculoskeletal: full muscle strength, no muscle tenderness, normal joint ROM Neurologic: AAOx3, sensation intact bilaterally Psychiatric: interacting appropriately, not anxious, not encephalopathic, thought process linear Lymph, Heme, Immunologic: no cervical LAD, no supraclavicular LAD ICD10 Worksheet Patient Problems: Problems Problem Status Onset Chest pain Acute Dyspnea Acute Back pain Acute Chronic obstructive pulmonary disease with acute exacerbation Acute Hospital-acquired pneumonia Acute Hypoxia Acute
--- NOTE | 2018-12-06 17:08 | ASMTCMCOM ---
CM Note CM Note Notes: Chart reviewed and met with Pt. Pt is a 53yr old admitted w/ Chest pain & nausea. Reports he is feeling better. Pt will likely return to [facility] when Discharge. PT has not seen Pt. CM available for needs. Plan: Discharge to [facility] Date Signed: 12/06/2018 05:08 PM Electronically Signed By:Socorro Figueroa
[2018-12-07] MEDS: IPRATROPIUM/ALBUTEROL 3 ML DEYVIAL IH SCH (05:39)
[2018-12-07] MEDS ORDERED: IPRATROPIUM/ALBUTEROL 3 ML DEYVIAL IH PRN (09:00)
[2018-12-07] MEDS: FLUTICASONE/SALMETER 250/50MCG DISKUS IH SCH ×2 (09:36→19:06)
[2018-12-07] MEDS: FLUoxetine 20 MG CAP PO SCH (09:36)
[2018-12-07] MEDS: PANTOPRAZOLE SODIUM 40 MG TAB PO SCH (09:36)
[2018-12-07] MEDS: LORazepam 2 MG/ML INJ IVP PRN ×2 (09:36→16:11)
[2018-12-07] MEDS: ACETAMINOPHEN 325 MG TAB PO PRN ×2 (09:36→16:10)
[2018-12-07] MEDS: TAMSULOSIN HCL 0.4 MG CAP PO SCH (09:36)
[2018-12-07] MEDS: Meloxicam [Meloxicam] 7.5 MG PO PRN (09:36)
[2018-12-07] MEDS: ENOXAPARIN 40 MG/0.4 ML SYR SC SCH (09:37)
--- NOTE | 2018-12-07 10:50 | PDMN ---
Medical Necessity [place] [facility] [place] Sub[place] Related D/O, 2 days: 53 yo CP, abd pain, dizziness and nausea initially admit to OBS for workup but pt requires additional MN as pt placed on CIWA protocol w/ scores rising for etoh w/d receiving freq IV Ativan for management, pt still w/ GI discomfort and dizziness. Remains on cont tele. Hx homeless, COPD, etoh/nicotine abuse and TB. Change to IP status 12/06/18@204 per MD order.
[2018-12-07] MEDS: THIAMINE HCL 500 MG in NS 100 ML IV SCH (10:59)
[2018-12-07] MEDS ORDERED: IPRATROPIUM/ALBUTEROL 4GM MDI IH PRN (11:44)
--- NOTE | 2018-12-07 15:00 | HOSPPROG ---
Hospitalist Progress Note Assessment/Plan: This is a 53 y/o homeless w/ etoh and nicotine abuse, COPD, hx of TB, and reflux presents with symptoms of non-radiating epigastric pressure, mild nausea , and shortness of breath. #Chest pain/epigastric pain: Heart score 3 (slightly suspicious, age, risk factors). 2 troponins negative 0.00. EKG unremarkable. Pain improved with GI cocktail received in ED. Denies SOB currently. symptoms of dizziness, NV, gi discomfort are fairly typical of naltrexone and likely his symptoms are due to abrupty starting naltrexone while still drinking. -resolved currently -ECG, troponins negative. -stop naltrexone. -can follow up as outpatient for further eval if persists or recurs. #Etoh abuse- Drinks 1-2 pints of voda or whiskey daily, last drink the day before admission. He was started on naltrexone the day after stopping drinking, which in researching this medication is typically contraindicated. I discussed with pharmacy and through our discussion it appears patients are supposed to be through withdrawal prior to starting naltrexone. -CIWA scale -Thiamine bolus + PO -Ativan PRN -Stop naltrexone for now. -Educated pt on etoh and nicotine cessation #Cough: this is chronic for him but he reports it worsens in colder climate. This is complicated with the fact he smokes daily and heavily. No changes with CXR from prior images. Hx of TB. Per pt, relapsed 3x last time approx. 5 yrs ago. s/p abx treatment. Admission in 2015 and 2017, AFB smear was completed and negative. -respiratory panel negative -cough improved this morning. -PRN tessalon #GERD: received GI cocktail while in ED which improved his status. Reports in AM, eating and drinking made his symptoms worse. -Maalox PRN -Initiated Protonix PO Diet: Regular Code: Full VTE ppx: Lovenox subq Dispo: inpatient for etoh withdrawal. Subjective: feels fine. no longer with chest pain. Objective: Vital Signs Temp Pulse Resp BP Pulse Ox 36.6 C 92 12 110/77 92 12/07/18 11:02 12/07/18 11:02 12/07/18 11:02 12/07/18 11:02 12/07/18 11:02 Laboratory Results 12/07/18 03:44 12/06/18 12/07/18 12/08/18 05:59 05:59 05:59 Intake Total 600 Balance 600 - Physical Exam Constitutional: no apparent distress, appears nourished, not in pain Eyes: PERRL, anicteric sclera, EOMI Ears, Nose, Mouth, Throat: moist mucous membranes, hearing normal, ears appear normal, no oral mucosal ulcers Cardiovascular: regular rate and rhythym, no murmur, rub, or gallop Respiratory: no respiratory distress, no rales or rhonchi, clear to auscultation Gastrointestinal: normoactive bowel sounds, soft, non-tender abdomen, no palpable masses Genitourinary: no bladder fullness, no bladder tenderness, no renal bruits Skin: no rashes or abrasions, no fluctuance, no induration Musculoskeletal: full muscle strength, no muscle tenderness, normal joint ROM Neurologic: AAOx3, sensation intact bilaterally Psychiatric: interacting appropriately, not anxious, not encephalopathic, thought process linear Lymph, Heme, Immunologic: no cervical LAD, no supraclavicular LAD ICD10 Worksheet Patient Problems: Problems Problem Status Onset Chest pain Acute Dyspnea Acute Back pain Acute Chronic obstructive pulmonary disease with acute exacerbation Acute Hospital-acquired pneumonia Acute Hypoxia Acute
--- NOTE | 2018-12-07 15:49 | ASMTCMCOM ---
CM Note CM Note Notes: CM met with pt. He reports he wants to go to rehab after he is discharged here and is already on the waitlist at [facility] in [place]. CM provided pt with list of other resources in the area and educational material on recovery and sobriety. Pt was appreciative of information. Pt has completed coordinated entry and is agreeable back there once medically stable. He would like to be discharged straight to rehab, if possible. CM to follow. Plan: ETOH rehab or coordinated entry once medically stable. Date Signed: 12/07/2018 03:48 PM Electronically Signed By:LEOLA Walton
[2018-12-07] MEDS: ONDANSETRON DISINTEGRATING 4 MG TAB PO PRN (16:10)
[2018-12-08] MEDS: ACETAMINOPHEN 325 MG TAB PO PRN ×2 (01:12→08:30)
[2018-12-08] MEDS: Meloxicam [Meloxicam] 7.5 MG PO PRN (01:13)
[2018-12-08] MEDS: LORazepam 2 MG/ML INJ IVP PRN ×5 (08:23→22:48)
[2018-12-08] MEDS: ENOXAPARIN 40 MG/0.4 ML SYR SC SCH (08:29)
[2018-12-08] MEDS: FLUoxetine 20 MG CAP PO SCH (08:29)
[2018-12-08] MEDS: PANTOPRAZOLE SODIUM 40 MG TAB PO SCH (08:30)
[2018-12-08] MEDS: TAMSULOSIN HCL 0.4 MG CAP PO SCH (08:30)
[2018-12-08] MEDS: MAG HYDROX/AL HYDROX/SIMETH 30 ML UDCUP PO PRN ×2 (08:30→13:10)
[2018-12-08] MEDS: THIAMINE HCL 500 MG in NS 100 ML IV SCH (08:30)
[2018-12-08] MEDS: FLUTICASONE/SALMETER 250/50MCG DISKUS IH SCH ×2 (08:48→22:28)
--- NOTE | 2018-12-08 17:24 | HOSPPROG ---
Hospitalist Progress Note Assessment/Plan: This is a 53 y/o homeless w/ etoh and nicotine abuse, COPD, hx of TB, and reflux presents with symptoms of non-radiating epigastric pressure, mild nausea , and shortness of breath. #Chest pain/epigastric pain: Heart score 3 (slightly suspicious, age, risk factors). 2 troponins negative 0.00. EKG unremarkable. Pain improved with GI cocktail received in ED. Denies SOB currently. symptoms of dizziness, NV, gi discomfort are fairly typical of naltrexone and likely his symptoms are due to abrupty starting naltrexone while still drinking. -resolved currently -ECG, troponins negative. -stop naltrexone. -can follow up as outpatient for further eval if persists or recurs. #Etoh abuse- Drinks 1-2 pints of voda or whiskey daily, last drink the day before admission. He was started on naltrexone the day after stopping drinking, which in researching this medication is typically contraindicated. I discussed with pharmacy and through our discussion it appears patients are supposed to be through withdrawal prior to starting naltrexone. -CIWA scale -Thiamine bolus + PO -Ativan PRN -Stop naltrexone -Educated pt on etoh and nicotine cessation #Cough: this is chronic for him but he reports it worsens in colder climate. This is complicated with the fact he smokes daily and heavily. No changes with CXR from prior images. Hx of TB. Per pt, relapsed 3x last time approx. 5 yrs ago. s/p abx treatment. Admission in 2015 and 2017, AFB smear was completed and negative. -respiratory panel negative -cough improved this morning. -PRN tessalon #GERD: received GI cocktail while in ED which improved his status. Reports in AM, eating and drinking made his symptoms worse. -Maalox PRN -Initiated Protonix PO Diet: Regular Code: Full VTE ppx: Lovenox subq Dispo: inpatient for etoh withdrawal. Subjective: Still having headaches other symptoms slowly resolving Objective: Vital Signs Temp Pulse Resp BP Pulse Ox 36.9 C 79 12 113/74 93 12/08/18 11:29 12/08/18 11:29 12/08/18 11:29 12/08/18 11:29 12/08/18 11:29 Laboratory Results 12/08/18 03:54 12/07/18 12/08/18 12/09/18 05:59 05:59 05:59 Intake Total 600 1430 Balance 600 1430 - Physical Exam Constitutional: no apparent distress, appears nourished, not in pain Eyes: PERRL, anicteric sclera, EOMI Ears, Nose, Mouth, Throat: moist mucous membranes, hearing normal, ears appear normal, no oral mucosal ulcers Cardiovascular: regular rate and rhythym, no murmur, rub, or gallop Respiratory: no respiratory distress, no rales or rhonchi, clear to auscultation Gastrointestinal: normoactive bowel sounds, soft, non-tender abdomen, no palpable masses Genitourinary: no bladder fullness, no bladder tenderness, no renal bruits Skin: no rashes or abrasions, no fluctuance, no induration Musculoskeletal: full muscle strength, no muscle tenderness, normal joint ROM Neurologic: AAOx3, sensation intact bilaterally Psychiatric: interacting appropriately, not anxious, not encephalopathic, thought process linear Lymph, Heme, Immunologic: no cervical LAD, no supraclavicular LAD ICD10 Worksheet Patient Problems: Problems Problem Status Onset Chest pain Acute Dyspnea Acute Back pain Acute Chronic obstructive pulmonary disease with acute exacerbation Acute Hospital-acquired pneumonia Acute Hypoxia Acute
[2018-12-09] MEDS: Meloxicam [Meloxicam] 7.5 MG PO PRN ×2 (02:17→08:42)
[2018-12-09] MEDS: ACETAMINOPHEN 325 MG TAB PO PRN ×2 (02:17→08:42)
[2018-12-09 07:58] VITALS: BP 107/67
[2018-12-09] MEDS: ENOXAPARIN 40 MG/0.4 ML SYR SC SCH (08:42)
[2018-12-09] MEDS: FLUoxetine 20 MG CAP PO SCH (08:42)
[2018-12-09] MEDS: TAMSULOSIN HCL 0.4 MG CAP PO SCH (08:42)
[2018-12-09] MEDS: PANTOPRAZOLE SODIUM 40 MG TAB PO SCH (08:42)
[2018-12-09] MEDS: MAG HYDROX/AL HYDROX/SIMETH 30 ML UDCUP PO PRN (08:55)
[2018-12-09] MEDS ORDERED: THIAMINE HCL 100 MG TAB PO SCH (09:00)
[2018-12-09] MEDS: FLUTICASONE/SALMETER 250/50MCG DISKUS IH SCH (09:09)
--- NOTE | 2018-12-09 10:35 | HOSPPROG ---
Hospitalist Progress Note Assessment/Plan: This is a 53 y/o homeless w/ etoh and nicotine abuse, COPD, hx of TB, and reflux presents with symptoms of non-radiating epigastric pressure, mild nausea , and shortness of breath. Chest pain/epigastric pain: Heart score 3 (slightly suspicious, age, risk factors). 2 troponins negative 0.00. EKG unremarkable. ldl normal, not hypertensive Pain improved with GI cocktail received in ED. no further workup Etoh abuse- Drinks 1-2 pints of voda or whiskey daily, last drink the day before admission. He was started on naltrexone the day after stopping drinking, which in researching this medication is typically contraindicated. I discussed with pharmacy and through our discussion it appears patients are supposed to be through withdrawal prior to starting naltrexone. not in withdrawal now Cough: this is chronic for him but he reports it worsens in colder climate. This is complicated with the fact he smokes daily and heavily. No changes with CXR from prior images. Hx of TB. Per pt, relapsed 3x last time approx. 5 yrs ago. s/p abx treatment. Admission in 2015 and 2017, AFB smear was completed and negative. -respiratory panel negative -cough improved this morning. -PRN tessalon #GERD: received GI cocktail while in ED which improved his status. Reports in AM, eating and drinking made his symptoms worse. -Maalox PRN -Initiated Protonix PO home today > 30 minutes on dc Subjective: no events tele (interp by me). ldl 61. ate reakfast Objective: Vital Signs Temp Pulse Resp BP Pulse Ox 36.6 C 95 18 107/67 93 12/09/18 07:57 12/09/18 07:57 12/09/18 07:57 12/09/18 07:57 12/09/18 07:57 Laboratory Results 12/09/18 03:43 12/08/18 12/09/18 12/10/18 05:59 05:59 05:59 Intake Total 1430 1440 Balance 1430 1440 - Physical Exam Constitutional: no apparent distress, appears nourished Eyes: PERRL, anicteric sclera Ears, Nose, Mouth, Throat: moist mucous membranes, hearing normal Cardiovascular: regular rate and rhythym, no murmur, rub, or gallop, No systolic murmur Respiratory: no respiratory distress, no rales or rhonchi Gastrointestinal: normoactive bowel sounds, soft, non-tender abdomen Genitourinary: no bladder fullness, No asif in urethra Skin: warm, normal color Musculoskeletal: full muscle strength ICD10 Worksheet Patient Problems: Problems Problem Status Onset Chest pain Acute Dyspnea Acute Back pain Acute Chronic obstructive pulmonary disease with acute exacerbation Acute Hospital-acquired pneumonia Acute Hypoxia Acute
--- NOTE | 2018-12-09 12:18 | ASMTLACE ---
DANIKA Length of stay for Answers: 3 days current admission Acuity / Level of Answers: Yes Care: Did the patient have an inpatient admission? Comorbidities - select Answers: Chronic pulmonary disease all that apply Opioid dependence / Chronic pain # of Emergency department Answers: 1-2 visits in the last 6 months Social determinants Answers: History of substance abuse (ETOH, street drugs, prescription drugs, etc.) Homelessness (street, group home) Score: 19 Date Signed: 12/09/2018 12:12 PM Electronically Signed By:Hayde Apple
--- NOTE | 2018-12-09 12:21 | GDS ---
[f rep st] DISCHARGE SUMMARY DISCHARGE DIAGNOSES: 1. Epigastric pain. 2. Alcoholism. 3. Cough. 4. Subdural hematoma. 5. Reflux. 6. History of tuberculosis. 7. Tobacco use. 8. Chronic obstructive pulmonary disease. HOSPITAL COURSE: See admission history and physical by Dr. Masood Delacruz. The patient presen derrick with epigastric pain that resolved with GI cocktail. He had a nonischemic EKG, serial negative t roponins, and no events on telemetry. Did not have hypertension. His LDL was 61. Further ischemic evaluation was not undertaken. The chest pain, epigastric pain did not recur. He was here for a cou ple of days. He had a negative D-dimer effectively ruling out pulmonary embolism. The patient was tolerating a diet and discharged not in alcohol withdrawal on the day of discharge. /[id number]/MODL
--- NOTE | 2018-12-09 14:22 | ASDISCHSUM ---
Discharge Information Plan Status:Homeless/Custodial Medically Cleared to Leave:12/08/2018 Discharge Date:12/08/2018 CM D/C Disposition:Streets (Homeless) ADT D/C Disposition: Projected Discharge Date:12/08/2018 Transportation at D/C:Medicaid Transportation Discharge Delay Reason: Follow-Up Date:12/08/2018 Discharge Slot: Final Diagnosis:Alcohol WD, chest pain Placement Information Patient Contact Information Contact Name:ROSALBA Relationship:Sister Address: Work Phone: City:[place] Alternate Phone: [facility] Code:[place] Email: Financial Information Financial Class:Medicaid Primary Plan Desc:[employer] [place] Primary Plan Number:[id number] Secondary Plan Desc: Secondary Plan Number: Assessment Information [facility] Progress Note CM Note CM Note Notes: Chart reviewed and met with Pt. Pt is a 53yr old admitted w/ Chest pain & nausea. Reports he is feeling better. Pt will likely return to [facility] when Discharge. PT has not seen Pt. CM available for needs. Plan: Discharge to [facility] Date Signed: 12/06/2018 05:08 PM Electronically Signed By:Socorro Figueroa [facility] CM Progress Note CM Note CM Note Notes: CM met with pt. He reports he wants to go to rehab after he is discharged here and is already on the waitlist at [facility] in [place]. CM provided pt with list of other resources in the area and educational material on recovery and sobriety. Pt was appreciative of information. Pt has completed coordinated entry and is agreeable back there once medically stable. He would like to be discharged straight to rehab, if possible. CM to follow. Plan: ETOH rehab or coordinated entry once medically stable. Date Signed: 12/07/2018 03:48 PM Electronically Signed By:LEOLA Walton LACE LACE Length of stay for Answers: 3 days current admission Acuity / Level of Answers: Yes Care: Did the patient have an inpatient admission? Comorbidities - select Answers: Chronic pulmonary disease all that apply Opioid dependence / Chronic pain # of Emergency department Answers: 1-2 visits in the last 6 months Social determinants Answers: History of substance abuse (ETOH, street drugs, prescription drugs, etc.) Homelessness (street, residential) Score: 19 Date Signed: 12/09/2018 12:12 PM Electronically Signed By:Hayde Apple Case Management Discharge Plan Note Case Management Discharge Discharge Order Complete? Answers: Yes Patient to Obtain Answers: Independently Medications Transportation Arranged Answers: Other Notes: [place] Family Notified Answers: No Notes: pt refused Discharge Comments Notes: Pt discharging today to the reserved hospital bed at the [facility]. Follow up appointment made for pt with Chela Sun MD at [facility] for morning. Pt also given [place] transport and gloves. CM contacted [facility] in [place] where pt is on the waitlist for intensive residential ETOH treatment inquiring about an opening sooner than later. They returned call stating pt had missed several intake appointments and was not allowed back on the waitlist for a month. CM provided pt with [facility] addiction services application which he filled in and CM faxed to [facility]. CM also provided pt with intake number for [facility] in [place] and pt left a message. No further CM needs noted at this time. Intervention Information
== END 2018-12-09 14:28 | disposition home or self-care (01) | DRG 251 ==
LOC: EDUNIT# → EDBD → F2W 16:40 → OBSVTOIN 12-06 20:44
PROVIDERS: ADMIT Internal Medicine; ATTEND Internal Medicine
DX: R10.13 Epigastric pain (principal); R05 Cough; K21.9 Gastro-esophageal reflux disease without esophagitis; F10.20 Alcohol dependence, uncomplicated; F17.210 Nicotine dependence, cigarettes, uncomplicated; Z59.0 Homelessness; Z86.11 Personal history of tuberculosis
CPT/HCPCS: 84484-ER; 96374; 97161-GP; G0378; J1650; J2060; J2405; J3411